=== PATIENT | male | born 1955 | race Caucasian/White ===

== ENCOUNTER 2023-02-27 08:59 | Inpatient (IN) | payer OTHER, SELFPAY ==
[2023-02-27] VITALS (58 sets, daily range): BP systolic 83–137; BP diastolic 50–113; PULSE 94–121; RESP 18–37; TEMP 36.1–36.6; O2SAT 87–94; BMI 24.4
--- NOTE | 2023-02-27 09:10 | XRR_ITS ---
PROCEDURE INFORMATION: Exam: XR Chest Exam date and time: 02/27/2023 9:52 AM Age: 67 years old Clinical indication: Cough and dyspnea; Additional info: Dyspnea/cough TECHNIQUE: Imaging protocol: Radiologic exam of the chest. Views: 1 view. Total images: 645 COMPARISON: No relevant prior studies available. FINDINGS: Lungs: Unremarkable. No consolidation. Pleural spaces: Unremarkable. No pleural effusion. No pneumothorax. Heart/Mediastinum: Unremarkable. No cardiomegaly. Bones/joints: Unremarkable. XR/XR chest 1V portable [id number] IMPRESSION: No acute findings.
--- NOTE | 2023-02-27 09:15 | CT_ITS ---
WS: [id number] CT HEAD TECHNIQUE: Noncontrast CT of the head obtained from the skullbase to the vertex. CLINICAL INFORMATION: AMS COMPARISON: None. DLP: 1173.[address] scans at [facility] use at least one of these dose optimization techniques: automated e xposure control; mA and/or kV adjustment per patient size (includes targeted exams where dose is matc hed to clinical indication); or iterative reconstruction. FINDINGS: No evidence of intracranial hemorrhage or mass effect. Ventricular system and basal cisterns are johnson nt. Moderate to advanced small vessel changes with mild parenchymal volume loss. No extra-axial fluid collections. No evidence of mass or mass effect. Intracranial vascular calcification. Chronic lacuna r infarct RIGHT cerebellum.. Paranasal sinuses and mastoid air cells are well aerated. .Normal visualized soft tissues. IMPRESSION: 1. No evidence of intracranial hemorrhage or mass effect. 2. Moderate to advanced small vessel changes. Mild parenchymal volume loss. 3. Intracranial vascular calcification. 4. Chronic lacunar infarct RIGHT cerebellum. 5. No acute intracranial findings.
--- NOTE | 2023-02-27 09:18 | ECG_ITS ---
[facility] Test Date: 2023-02-27 Pat Name: Rodrigo Shoemaker Department: Room: Gender: Male College Athlete: : 1955 Requested By: Edgardo Chappell Order Number: [id number] Irma MD: Osmin Sierra M.D. Measurements Intervals [place] Rate: 111 P: 55 LA: 169 QRS: 107 QRSD: 110 T: 16 QT: 339 QTc: 461 Interpretive Statements SINUS TACHYCARDIA POSSIBLE LEFT ATRIAL ENLARGEMENT [-0.1mV P-WAVE IN V1/V2] INCOMPLETE RIGHT BUNDLE BRANCH BLOCK [90+ ms QRS DURATION, TERMINAL R IN V1/V2, 40+ ms S IN I/aVL/V4/V5/V6] POSSIBLE RIGHT VENTRICULAR HYPERTROPHY [SOME/ALL OF: PROMINENT R IN V1, LATE TRANSITION, RAD, LETICIA, SSS] MARKED ST ELEVATION, CONSIDER INFERIOR INJURY [MARKED ST ELEVATION W/O NORMALLY INFLECTED T-WAVE IN II/aVF] ACUTE WA No previous ECG available for comparison Electronically Signed On 02-27-2023 12:29:23 CDT by Osimn Sierra M.D. [id number]
--- NOTE | 2023-02-27 09:30 | ED_ITS ---
HPI - Altered Mental Status General: Chief Complaint: Altered Mental Status Stated Complaint: ams Time Seen by Provider: 02/27/23 09:06 Source: EMS Mode of arrival: EMS Limitations: altered mental status History of Present Illness: Patient is a 67-year-old male with unknown past medical history who presents to the emergency department via EMS due to altered mental status onset 5 days. Per EMS, patient's last known well was Thursday as family reported that he attended lunch with them and was at baseline mentation. Family also notes that he had a minor fall resulting in a head laceration, but other than that there was nothing unusual to report about the patient or his behavior. It is unknown at this time who called EMS today, as patient arrives altered and does not answer any questions or respond to any commands. He exhibits an odor of urine and feces, and presents in soiled underwear that appears to have been unchanged for some time. Review of systems unobtainable at this time due to patient's mentation. EMS reports that patient's blood glucose was 78 and he was started on IV saline and put on oxygen. MD complaint: altered mental status Onset (ago): day(s) (5) Timing confirmed by: family member Severity: severe Consistency of symptoms: Unknown Context: unknown Treatments prior to arrival: glucose, IV fluid and oxygen Review of Systems General: Reports: ROS unobtainable due to mental status [facility] ED PFSH: Surgical History (Updated 02/27/23 @ 12:20 by Moose Coronado MD) History of hernia repair Social History (Updated 02/27/23 @ 12:20 by Moose Coronado MD) Smoking and tobacco/nicotine status: current every day tobacco/nicotine user Alcohol intake: current Physical Exam Const: EXAM LIMITATIONS: altered mental status (Patient does not answer questions or follow commands) GENERAL APPEARANCE: disheveled (Strong odor of urine and feces) and ill appearing ORIENTATION/CONSCIOUSNESS: Yes awake and Yes confused HENMT: COMMON NORMALS: normocephalic, atraumatic, hearing grossly normal bilaterally, external ears normal and Normal external nose present HEAD & SCALP: normocephalic and atraumatic; no laceration FACE & SINUS: normal facial exam NOSE: Normal external nose present EXTERNAL EAR: Yes external ears normal Eye: COMMON NORMALS: Equal, round and reactive pupils present, conjunctivae normal and no scleral icterus CONJUNCTIVA: Yes conjunctivae normal PUPIL: Yes Equal, round and reactive pupils present OTHER: Eyes track across midline Neck/C-Spine: COMMON NORMALS: no JVD Chest: COMMONS NORMALS: normal inspection of the chest Resp: EFFORT & INSPECTION: Yes audible wheezes OTHER: Audible gurgling breath sounds with inspiratory and expiratory wheezes throughout all lung toscano Cardio: COMMON NORMALS: no JVD, regular rhythm and No murmurs present (Cardio) RATE: tachycardic RHYTHM: regular rhythm GI: COMMON NORMALS: Soft to palpation and No hepatosplenomegaly present AUSCULTATION: Yes normoactive bowel sounds PALPATION: Yes Soft to palpation, No Tenderness to palpation present (GI), No Guarding due to palpation present (GI) and Yes No hepatosplenomegaly present Extremity: COMMON NORMALS: normal to inspection, capillary refill normal, no clubbing, cyanosis or edema, no calf tenderness and no pedal edema Skin: COMMON NORMALS: no rashes or lesions noted GENERAL SKIN EXAM: no rashes or lesions noted Course Vital Signs: Vital signs: Vital Signs Temperature 97 F L 02/27/23 13:30 Pulse Rate 111 H 02/27/23 13:30 Respiratory Rate 32 H 02/27/23 13:30 Blood Pressure 88/71 02/27/23 13:30 Pulse Oximetry 87 L 02/27/23 13:30 Oxygen Delivery Me thod Oxymask 02/27/23 12:00 Oxygen Flow Rate 3 02/27/23 10:00 MDM - Altered Mental Status Medical Decision Making Patient presented nonresponsive he would open his eyes to verbal stimuli but not provide any answers. Initial EKG showed ST elevation AK in the inferior d istribution this was repeated and was actually a little bit more clear than the first which had a lot of artifact. We called a STEMI alert and discussed with Dr. Gutierrez we had other concerns as well with his altered mental status his tachycardia and hypoxia. His last known well time was [address] the head was negative and CTA of the chest showed bilateral segmental and subsegmental pulmonary emboli heparin was ordered due to already been given heparin bolus Plavix and aspirin for his STEMI. Post output Dr. Sierra felt comfortable with proceeding to the Delimber Operator. Chest x-ray showed pneumonia. Laboratory test showed markedly elevated troponin with troponin at over 9000 he also has rhabdomyolysis acute kidney injury. He is hypoxic with acute respiratory failure exacerbation of COPD and pneumonia. He has a history of alcoholism suspect possible aspiration pneumonia he was given Zosyn. He does meet criteria for sepsis with elevated lactic acid cultures have been antibiotics ordered he was not given a fluid bolus because of his current condition with the fluid bolus would be harmful to him and needs to have his cardiac issues further evaluated prior to getting any fluid. He was given small doses of fluids and did have an improvement in his blood pressure. If he requires further support may need pressors in the Delimber Operator. Medical Records I reviewed the patient's medical records. Lab Data I reviewed the patient's lab results. 02/27/23 09:35 02/27/23 10:40 Radiology Impressions Chest X-Ray 02/27/23 09:10 IMPRESSION: No acute findings. Laboratory Results WBC 29.52 10^3/uL (3.29-11.43) H 02/27/23 09:35 RBC 5.27 10^6/uL (3.85-5.65) 02/27/23 09:35 Hgb 16.80 g/dL (11.27-16.99) 02/27/23 09:35 Hct 49.7 % (37-53) 02/27/23 09:35 MCV 94.3 fl (82-101) 02/27/23 09:35 MCH 31.9 pg (27-33) 02/27/23 09:35 MCHC 33.8 g/dL (30-55) 02/27/23 09:35 RDW 14.4 % (12.1-15.1) 02/27/23 09:35 Plt Count 179 10^3/cmm (157-399) 02/27/23 09:35 MPV 11.9 fL (7.4-10.4) H 02/27/23 09:35 Neut % (Auto) 91.8 % 02/27/23 09:35 Lymph % (Auto) 2.5 % 02/27/23 09:35 Osborne % (Auto) 3.8 % 02/27/23 09:35 Eos % (Auto) 0.3 % 02/27/23 09:35 Baso % (Auto) 0.1 % 02/27/23 09:35 Neut # (Auto) 27.10 10^3/uL (1.8-7.7) H 02/27/23 09:35 Lymph # (Auto) 0.7 10^3/uL (0.8-4.8) L 02/27/23 09:35 Osborne # (Auto) 1.1 10^3/uL (0.2-0.9) H 02/27/23 09:35 Eos # (Auto) 0.1 10^3/uL (0.0-0.8) 02/27/23 09:35 Baso # (Auto) 0.0 10^3/uL (0.0-0.1) 02/27/23 09:35 Nucleated RBC % (auto) 0 % 02/27/23 09:35 Nucleated RBCs # 0.0 /100WBC 02/27/23 09:35 PT 17.90 SECONDS (12.1-14.9) H 02/27/23 10:40 INR 1.43 (0.8-1.2) H 02/27/23 10:40 APTT 68.8 SECONDS (23.9-36.7) H 02/27/23 10:40 Specimen Type Arterial 02/27/23 10:07 Sample Site Radial, right 02/27/23 10:07 ABG pH 7.33 (7.35-7.45) L 02/27/23 10:07 ABG pCO2 28.3 mmHg (35-45) L 02/27/23 10:07 ABG pO2 55.8 mmHg (80.0-100.0) L 02/27/23 10:07 ABG HCO3 15.0 mmol/L (22-26) L 02/27/23 10:07 ABG O2 Saturation 86.7 02/27/23 10:07 ABG Base Excess -9.2 mmol/L (-2.0-2.0) L 02/27/23 10:07 Myles Test Pos 02/27/23 10:07 A-a O2 Gradient 7.7 mmHg (5-10) 02/27/23 10:07 Hematocrit 49.3 % (42-52) 02/27/23 10:07 Hgb O2 Saturation 85.4 % (95-100) L 02/27/23 10:07 Carboxyhemoglobin 1.1 %THgb (0.4-20.1) 02/27/23 10:07 Methemoglobin 0.4 % (0.4-1.5) 02/27/23 10:07 Total Hemoglobin 16.1 g/dL (14-18) 02/27/23 10:07 Sodium 125.0 mmol/L (131-143) L 02/27/23 10:07 Potassium 3.9 mmol/L (3.5-5.0) 02/27/23 10:07 Glucose 80.0 mg/dL (70-115) 02/27/23 10:07 Ionized Calcium 1.0 mmol/L (1.1-1.4) L 02/27/23 10:07 O2 Delivery Device Nc 02/27/23 10:07 O2 Liters/Min 4.0 % 02/27/23 10:07 Sewer Pipe Cleaner ID [place]ci 02/27/23 10:07 Sodium 123 mmol/L (136-145) L 02/27/23 10:40 Potassium 4.4 mmol/L (3.5-5.1) 02/27/23 10:40 Chloride 85 mmol/L (98-107) L 02/27/23 10:40 Carbon Dioxide 14 mmol/L (22-29) L 02/27/23 10:40 Anion Gap 28.4 (5-19) H 02/27/23 10:40 BUN 53 mg/dL (8-23) H 02/27/23 10:40 Creatinine 3.5 mg/dL (0.7-1.2) H 02/27/23 10:40 GFR Calculation 17.6 mL/min (90-130) L 02/27/23 10:40 Glucose 75 mg/dL (65-115) 02/27/23 10:40 Calculated Osmolality 269 mOsm/kg (285-295) L 02/27/23 10:40 Lactic Acid 4.1 mmol/L (0.5-2.2) H* 02/27/23 10:40 Calcium 8.0 mg/dL (8.5-10.5) L 02/27/23 10:40 Magnesium 2.0 mg/dL (1.7-2.3) 02/27/23 10:40 Total Bilirubin 0.7 mg/dL (0.15-1.2) 02/27/23 10:40 AST 166 U/L (0-40) H 02/27/23 10:40 ALT 94 U/L (0-41) H 02/27/23 10:40 Alkaline Phosphatase 78 U/L (40-130) 02/27/23 10:40 Ammonia 32 umol/L (16-60) 02/27/23 10:40 Creatine Kinase 3500 U/L (39-308) H* 02/27/23 10:40 Troponin T Baseline 9327 ng/L (0-15) H* 02/27/23 10:40 NT-Pro-B Natriuret Pep 16460 pg/mL (0-125) H 02/27/23 10:40 Total Protein 6.3 g/dL (6.6-8.7) L 02/27/23 10:40 Albumin 2.3 g/dL (3.5-5.2) L 02/27/23 10:40 Globulin 4.0 g/dL (1.3-4.6) 02/27/23 10:40 Lipase 21 U/L (13-60) 02/27/23 10:40 TSH 1.11 uIU/mL (0.27-4.20) 02/27/23 10:40 Urine Color Yellow (Yellow) 02/27/23 10:48 Urine Appearance Cloudy (CLEAR) A 02/27/23 10:48 Urine pH 5 (5-7) 02/27/23 10:48 Ur Specific [place] 1.020 (1.005-1.030) 02/27/23 10:48 Urine Protein 2+ (Negative) H 02/27/23 10:48 Urine Glucose (UA) Norm (Normal) 02/27/23 10:48 Urine Ketones 1+ (Negative) H 02/27/23 10:48 Urine Blood 3+ (Negative) H 02/27/23 10:48 Urine Nitrate Positive (Negative) H 02/27/23 10:48 Urine Bilirubin 1+ (Negative) H 02/27/23 10:48 Urine Urobilinogen 1 mg/dL (Negative) H 02/27/23 10:48 Ur Leukocyte Esterase 2+ (Negative) H 02/27/23 10:48 Urine RBC 0-4 /hpf (0-2) H 02/27/23 10:48 Urine WBC >100 /hpf (0-5) H 02/27/23 10:48 Ur Squamous Epith Cells 0-4 /hpf (0-5) H 02/27/23 10:48 Amorphous Sediment Not Reportable 02/27/23 10:48 Urine Bacteria 3+ /hpf (NONE) H 02/27/23 10:48 Fine Granular Casts 0-4 /lpf H 02/27/23 10:48 Coarse Granular Casts 0-4 /lpf H 02/27/23 10:48 Other Casts Waxy /lpf 02/27/23 10:48 Urine Mucus Trace /hpf 02/27/23 10:48 Ethyl Alcohol < 10 mg/dL (0-10) 02/27/23 10:40 Serum Ketones Negative (Negative) 02/27/23 10:40 Hepatitis A IgM Ab Non-reactive (Nonreactive) 02/27/23 10:40 Hep Bs Antigen Non-reactive (Nonreactive) 02/27/23 10:40 Hep B Core IgM Ab Non-reactive (Nonreactive) 02/27/23 10:40 Hepatitis C Antibody Non-reactive (Nonreactive) 02/27/23 10:40 All radiology interpretation(s) finalized by discharge Critical Care Time Critical Care Time: Critical Care Time: Yes Total Critical Care Time: 60 Attestation: The high probability of a clinically significant, sudden or life threatening deterioration of the patient's [Cardiovascular renal] system(s) required my full and direct attention, intervention and personal management. The critical care time is as shown. This time is in addition to time spent performing any reported procedures but includes the following: [x] Data and vital sign review and interpretation [x] Patient assessment, examination and intervention [x] Documentation [x] Medication orders and management Discharge Plan Discharge Patient Disposition: Admitted As Inpatient Admit Provider: Osmin Sierra Clinical Impression: Pulmonary emboli, Acute encephalopathy, ZEN (acute kidney injury), Sepsis, UTI (urinary tract infection), Acute hypoxic respiratory failure, STEMI (ST elevation myocardial infarction), Rhabdomyolysis, Aspiration pneumonitis, Alcoholism, COPD with acute exacerbation, Hyponatremia Condition: Stable Coding Level of Care Code ED Barrel Leveler for Keyana Khalil
--- NOTE | 2023-02-27 09:44 | XACV_ITS ---
Ht: 180 cm Wt: 79 kg BSA: 2.00 m2 Gender: Male : 1955 Exam Priority: Routine Procedure(s): Procedure Description: Diagnostic procedure Procedure Description: PCI procedure Procedure Description: Left Heart Catheterization Procedure Description: Left ventriculography Procedure Description: Drug Eluting Coronary Stent Procedure Description: Miscellaneous Procedure Description: ACT Procedure Description: Coronary Angiography Diagnostic Cath Status: Urgent Diagnostic Findings * INDICATION: 67 year old male with no known past medical history was brought by EMS with altered mental status. Patient gives no meaningful history. EKG shows sinus tachycardia with right bundle branch block and borderline ST elevations in inferior leads. He is not complaining of chest discomfort. Per ER history was reported to be last doing well 5 days ago. Patient had urgent CT head to rule out head bleed. Also had CTA chest and was found to have bilateral pulmonary emboli. However as we did not have a reliable history and EKG was suspicious with borderline inferior lead ST elevations in setting of right bundle branch block we decided to proceed with coronary angiogram urgently.. 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 Left to right collaterals are noted. * Left Main has no disease. * Left Anterior Descending has no disease. * Circumflex has no disease. * Coronary angiography shows right dominance. Interventional Findings * Procedure detail: We engaged RCA with JR4 guide catheter. IV heparin was administered to maintain anticoagulation. 0.014 run-through guidewire was used to cross the totally occluded vessel. We dilated the totally occluded vessel with 2.5 x 12 mm semicompliant balloon. However no significant flow was coming back. Winr-tq-jveow collaterals were already present. During the procedure initial troponin came back which was over 9000. This was not an acute occlusion. We decided to medically treat him. Guidewire and guide catheter were removed. Patient left the Metal Spinner in a stable condition. * Mid Right Coronary Artery to Distal Right Coronary Artery: 100% stenosis treated with a AB TREK 2.50X12 RX BALLOON. 100% residual stenosis, SELENA: 0 flow. Conclusions 1. 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 . 3. Unsuccessful attempt at revascularization with balloon angioplasty. Flow was not restored. Given left to right collaterals, initial troponin over 9000 no chest pain, this does not appear to be acute occlusion. Likely is subacute occlusion. Medical therapy decided. 4. Moderate left ventricular systolic dysfunction. Ejection fraction of 35%. 5. Mid Right Coronary Artery to Distal Right Coronary Artery was treated with a Balloon. Recommendations * Dual antiplatelet therapy with aspirin and plavix. * Continue anticoagulation with heparin. * Transfer to ICU. * Outpatient cardiology follow up in 4 weeks. Interventional RX Recommendation: PCI w/o planned CABG Diagnostic RX Recommendation: PCI w/o planned CABG Anticoagulation: Heparin Ventriculography Ejection Fraction: 35.0 % Pressures Phase:Rest AO : 116 / 77 ( 93 ) @ 12:30:00 PM 116 / 77 ( 93 ) @ 12:30:00 PM LV : 132 / 1 / 17 @ 12:29:00 PM 148 / 11 / 32 @ 12:29:00 PM 148 / 10 / 33 @ 12:30:00 PM Valves Phase:DefaultPhase AV : 32.0 @ 11:39:06 AM AV Mean Gradient: 22.0 @ 11:39:06 AM 22.0 @ 11:39:06 AM Clinical Evaluation EBL: 5mL-10mL Procedural Details Procedure Consent Obtained. Pre-Procedure Time Out. Identified patient by full name and date of as verbalized by the patient/guarantor. Does the consent match the physician's order: N/A Emergent. Accurate & Complete Informed Consent: Yes. Inpatient/Outpatient History & Physical on Chart: N/A Emergent. If H&P is completed, is and addenduem needed: N/A Emergent; If yes, is the addendum complete: N/A Emergent. Visualize and Verify Site with Patient/Guarantor: N/A. Relevant Radiology Images available: N/A Emergent. Pre-op teaching completed and patient verbalized understanding. The risks, benefits, and alternatives of sedation and/or procedure were discussed by physician. The patient agrees to continue. Procedure started. [facility] Clinical Fraility Score: 5: Mildly Frail. Metal Spinner Indications: New Onset Angina. Chest Pain Symptom Assessment: Typical Angina Symptoms. Cardiovascular Instability: No. Correct patient, site and procedure confirmed by cath team. PERRLA. Strong, equal hand lead setter bilaterally. Lungs clear x 5 lobes. IV Site on Arrival: 20 gauge in the right upper arm. IV Fluids: 0.9% NaCl at KVO. 0 mL infused prior to recyclable materials sorter. Oxygen started at 10liters/min via venti mask. right groin was prepped with chloroprep then draped in the usual sterile fashion. right radial was prepped with chloroprep then draped in the usual sterile fashion. Physician arrived. Baseline sample Acquired. HR: 109 BPM. Physician scrubbed in. Immediate Pre-Procedure Time Out. Correct Patient: Yes; Correct Procedure: Yes; Correct Site: Yes; Correct Patient Position: Yes; Correct Supplies: Yes; Dried Flammable Prep: Yes; Blood Products Available: N/A;. Lidocaine 1% infiltrated to the right radial. Arterial access obtained. A 5 [facility] lucian TIG catheter in over wire. Catheter redirected to the RCA. Catheter removed over the exchange wire. Inventory is CRD 6FR JR [address] lucian JR 4 guide catheter was inserted over the wire. Multiple views taken of left coronary artery. Multiple views taken of right coronary artery. Runthrough guidewire was advanced through the guide catheter to lesion in the mid RCA. Inflation number : 1 A AB TREK 2.50X12 RX BALLOON was prepped and advanced across the Mid RCA , then inflated to 8 GIRISH for 0:09 seconds. Inflation number: 2 The AB TREK 2.50X12 RX BALLOON was reinflated across the Mid RCA, to 8 GIRISH for 0:09 seconds. Inflation number: 3 The AB TREK 2.50X12 RX BALLOON was reinflated across the Mid RCA, to 4 GIRISH for 0:08 seconds. Inflation number: 4 The AB TREK 2.50X12 RX BALLOON was reinflated across the Mid RCA, to 8 GIRISH for 0:17 seconds. Inflation number: 5 The AB TREK 2.50X12 RX BALLOON was reinflated across the Mid RCA, to 8 GIRISH for 0:17 seconds. Results checked. Balloon out. A second Runthrough guidewire was advanced through the guide catheter to lesion in the mid RCA. One Runthrough wire removed. Inflation number: 6 The AB TREK 2.50X12 RX BALLOON was reinflated across the Mid RCA, to 2 GIRISH for 0:07 seconds. Inflation number: 7 The AB TREK 2.50X12 RX BALLOON was reinflated across the Mid RCA, to 4 GIRISH for 0:09 seconds. Inflation number: 8 The AB TREK 2.50X12 RX BALLOON was reinflated across the Mid RCA, to 8 GIRISH for 0:06 seconds. Inflation number: 9 The AB TREK 2.50X12 RX BALLOON was reinflated across the Mid RCA, to 10 GIRISH for 0:05 seconds. Critical troponin reported 9327 and lactid acid 4.1. Balloon out. Results checked. Wire out. Guide catheter out. A [address] [facility] lucian Angled Pig catheter in over wire. EDP Sample taken: LV Off; HR: 0 BPM; SpO2: 90%. EDP Sample taken: LV 132/1,17; HR: 64 BPM; SpO2: 90%. LV gram performed in HERRON @ 10 mL/second for a total of 30 mL. EDP Sample taken: LV 148/11,32; HR: 119 BPM; SpO2: 90%. Pullback taken: LV 148/10,33; AO 116/77(93); Mean: 22mmHg, Peak to Peak: 32mmHg, SEP: 16sec/min; HR: 119 BPM; SpO2: 90%. Catheter out. ACT drawn. Results 266 seconds. Therapeutic limits - pre-heparin administration 90-150 seconds and monitoring heparin during a vascular procedure >250 seconds. Physician scrubbed out. A TR Band was successful obtaining hemostatsis at the Right Radial artery insertion site. TR band placed. Hemostasis obtained. Post Procedure: Pulses reassessed and unchanged. PERRLA. Strong, equal hand lead setter bilaterally. No VTE prophylaxis required. Medication's Wasted: Nitro = 49.8 mg. Medication's Wasted: Other = fentanyl 75 mcg. Medication's Wasted: Other = versed 1 mg. Total IV fluids: 30 mL. Contrast type used: Omnipaque 300 mgI/mL, 500 mL bottle. Post-op diagnosis: total occlusion of RCA with collaterals to left. Complications: none. Estimated blood loss: 5mL-10mL. Responsiveness - Normal response to verbal stimuli; alert and oriented, PERRLA. Airway - Unaffected, no intervention required; spontaneous ventilation. Circulation: W/N/L, pulses unchanged. Nausea/Vomiting: N/A. Procedure completed. Patient transferred by stretcher to ICU. Vital chart was stopped. Access Site Site: Right Radial artery Sheath Size: 6 Fr Hemostasis Method: TR Band Hemostasis Success: Successful Procedure Medications Start: 10:56 AM Stop: 10:56 AM Medication: Versed Amount: 1 mg Route: I.V. Start: 11:00 AM Stop: 11:00 AM Medication: Fentanyl Amount: 25 mcg Route: I.V. Start: 11:05 AM Stop: 11:05 AM Medication: Nitrogylcerin Amount: 200 mcg Route: I.A. Start: 11:07 AM Stop: 11:07 AM Medication: Heparin Amount: 4000 units Route: I.V. Start: 11:24 AM Stop: 11:24 AM Medication: Levophed (norepinephrine) Amount: 4 mcg/min Route: I.V. yobani Ulloa, the attending physician, have reviewed and verified all procedure medications. Yes, all medications given per verbal order Report Signatures Finalized by Osmin Sierra MD on 03/01/2023 12:21 PM
[2023-02-27 09:45] LABS: Basophils % 0.1 %; Eosinophils # 0.1 10^3/uL (0.0-0.8); Eosinophils % 0.3 %; Hematocrit 49.7 % (37-53); Lymphocytes # 0.7 10^3/uL (0.8-4.8); Lymphocytes % 2.5 %; Mean Corpuscular HGB Conc 33.8 g/dL (30-55); Mean Corpuscular Hemoglobin 31.9 pg (27-33); Mean Corpuscular Volume 94.3 fl (82-101); Mean Platelet Volume 11.9 fL (7.4-10.4); Monocytes # 1.1 10^3/uL (0.2-0.9); Monocytes % 3.8 %; Neutrophils % 91.8 %; Nucleated Red Blood Cells % 0 %; Platelet Count 179 10^3/cmm (157-399); Red Blood Count 5.27 10^6/uL (3.85-5.65); Red Cell Distribution Width 14.4 % (12.1-15.1); White Blood Count 29.52 10^3/uL (3.29-11.43)
--- NOTE | 2023-02-27 09:49 | CT_ITS ---
WS: [id number] CTA OF THE CHEST WITH PULMONARY EMBOLISM PROTOCOL TECHNIQUE: High-resolution contrast enhanced CTA of the chest with coronal and sagittal reformatted i mages with pulmonary embolism protocol. MIP images are also reviewed. CLINICAL INFORMATION: dyspnea COMPARISON: None. DLP: 456.[address] scans at [facility] use at least one of these dose optimization techniques: automated e xposure control; mA and/or kV adjustment per patient size (includes targeted exams where dose is matc hed to clinical indication); or iterative reconstruction. FINDINGS: Proximal pulmonary arteries are normal. Numerous filling defects in the bilateral segmental and subse gmental pulmonary arteries compatible with pulmonary embolus. No evidence of RIGHT heart strain. Moderate chronic emphysematous changes. Tiny RIGHT greater than LEFT pleural effusions. Bibasilar ate lectasis. Normal caliber thoracic aorta. Aortic calcification. Coronary calcification. No mediastinal or hilar lymphadenopathy. Trace pericardial fluid. Adrenal glands are normal. IMPRESSION: 1. Bilateral acute pulmonary embolus in the segmental and subsegmental arteries bilaterally. Main pu lmonary arteries are patent. 2. No significant RIGHT heart strain. 3. Trace pleural fluid RIGHT greater than LEFT with bibasal atelectasis. Notified Edgardo Chang DO at 02/27/2023 10:40 AM.
[2023-02-27 10:08] LABS: Slide Review Slide Review Perform
[2023-02-27] MEDS: aspirin 300 mg Supp PR (10:15)
[2023-02-27] MEDS: heparin 5,000 unit/mL INJ 1 mL 4000 UNIT IVP (10:17)
[2023-02-27 10:18] LABS: ABG PCO2 28.3 mmHg (35-45); ABG PH Result 7.33 (7.35-7.45); Alveolar-Arterial Oxygen Gradi 7.7 mmHg (5-10); Arterial Blood Gas Hematocrit 49.3 % (42-52); Base Excess ABG -9.2 mmol/L (-2.0-2.0); Blood Gas Allen Test Pos; Blood Gas Operator Identificat WALCI; Blood Gas Sample Site Radial, right; Blood Gas Sample Type Arterial; Carboxyhemoglobin 1.1 %THgb (0.4-20.1); HGB O2 Sat 85.4 % (95-100); Methemoglobin 0.4 % (0.4-1.5); Oxygen Device NC; Oxygen Saturation ABG 86.7; PO2 ABG 55.8 mmHg (80.0-100.0); Potassium Level - ABG 3.9 mmol/L (3.5-5.0); Total Hemoglobin 16.1 g/dL (14-18)
[2023-02-27] MEDS: iohexol 350 mg/mL 500 mL Btl (per mL) IV (10:26)
--- NOTE | 2023-02-27 10:33 | ECG_ITS ---
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 Measurements Intervals [place] Rate: 122 P: 48 AL: 144 QRS: 104 QRSD: 114 T: -43 QT: 334 QTc: 477 Interpretive Statements SINUS TACHYCARDIA ACUTE AR Compared to ECG 02/27/2023 09:18:21 Incomplete right bundle-branch block no longer present ST (T wave) deviation no longer present Myocardial infarct finding no longer present Electronically Signed On 02-27-2023 12:31:41 CDT by Osmin Sierra M.D. [id number]
--- NOTE | 2023-02-27 10:40 | PM.CONSULT ---
Providers/Reason For Consult Consulting Physician/Specialty*: Osmin Sierra MD/ Cardiology Reason for Consult*: STEMI Requesting Physician: Dr Chang Attending Physician: Dr Coronado History of Present Illness History of Present Illness Rodrigo Shoemaker is a 67 year old male with no known past medical history was brought by EMS with altered mental status. Patient gives no meaningful history. EKG shows sinus tachycardia with rightward branch block and possible ST elevations in inferior leads. He is not complaining of chest discomfort. Per ER history was reported to be last doing well 5 days ago. Review of Systems General: Reports: ROS unobtainable due to mental status Medications/Allergies Home Medications Medication Instructions Recorded Confirmed Last Taken Type No Known Home Medications 02/27/23 02/27/23 Unknown History Allergies Allergy/AdvReac Type Severity Reaction Status Date / Time No Known Allergies Allergy Unverified 02/27/23 09:41 Current Medications Generic Name Dose Route Start Last Admin Trade Name Freq PRN Reason Stop Dose Admin Iohexol 0 ml 02/27/23 10:25 02/27/23 10:26 Iohexol 350 Mg/Ml 500 Ml Btl (Per Ml) IV 02/27/23 10:26 100 ml ONCE ONE Administration PFSH Acute PFSH: Surgical History (Updated 02/27/23 @ 12:20 by Moose Coronado MD) History of hernia repair Social History (Updated 02/27/23 @ 12:20 by Moose Coronado MD) Smoking and tobacco/nicotine status: current every day tobacco/nicotine user Alcohol intake: current Vitals/I&O/Wt Last Vital Signs Temp 97.7 F 02/27/23 10:03 Pulse 113 H 02/27/23 10:00 Resp 18 02/27/23 10:00 Pulse Ox 89 L 02/27/23 10:00 O2 Del Method Nasal Cannula 02/27/23 10:00 O2 Flow Rate 3 02/27/23 10:00 Weight last 48 hrs Weight 175 lb Physical Exam Narrative: GENERAL: Patient is confused, does not respond to questions NECK: No jugular vein distension. [] HEENT: No cyanosis. No icterus. No pallor. [] HEART: Tachycardia LUNGS: Diminished air entry CENTRAL NERVOUS SYSTEM: Confused, does not follow commands EXTREMITIES: Lower extremities with 1+ edema bilaterally. Data 02/28/23 03:56 02/28/23 03:56 A&P Assessment and plan (1) Acute encephalopathy: (2) Pulmonary emboli: (3) ST elevation: Plan Patient has presented with altered mental status. Not complaining of chest pain however not responding to questions appropriately. He had high concern for pulmonary embolism given right bundle branch block along with tachycardia and hypoxia. CTA was performed that showed bilateral segmental and subsegmental pulmonary emboli. Given his ST changes showing borderline ST elevation in inferior cotter, we will proceed with emergent coronary angiogram. Labs are pending at this time. Anticoagulation with heparin Aspirin given. Consult Attestations Medical Necessity Statement: Care expected to cross 2 midnights. Coding Level of Care Code Acute Code for [facility] Diagnoses Acute encephalopathy G93.[address] elevation R94.31
--- NOTE | 2023-02-27 10:52 | PC.NURSE ---
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
[2023-02-27 11:10] LABS: INR 1.43 (0.8-1.2)
[2023-02-27 11:11] LABS: Partial Thromboplastin Time 68.8 SECONDS (23.9-36.7)
[2023-02-27 11:15] LABS: Ketone (Acetest) Serum Negative (Negative)
[2023-02-27 11:17] LABS: Ammonia 32 umol/L (16-60)
[2023-02-27 11:24] LABS: Troponin(5th) Baseline 9327 ng/L (0-15)
[2023-02-27 11:25] LABS: Lactic Sepsis W/Reflex 4.1 mmol/L (0.5-2.2)
[2023-02-27 11:27] LABS: Alanine Aminotransferase 94 U/L (0-41); Albumin Level 2.3 g/dL (3.5-5.2); Alkaline Phosphatase 78 U/L (40-130); Blood Urea Nitrogen 53 mg/dL (8-23); Carbon Dioxide 14 mmol/L (22-29); Chloride 85 mmol/L (98-107); Glomerular Filtration Rate 17.6 mL/min (90-130); Glucose 75 mg/dL (65-115); Lipase 21 U/L (13-60); Osmolality Calculated 269 mOsm/kg (285-295); Sodium 123 mmol/L (136-145); Total Bilirubin 0.7 mg/dL (0.15-1.2); Total Protein 6.3 g/dL (6.6-8.7)
[2023-02-27 11:30] LABS: Alcohol Level < 10 mg/dL (0-10); Creatinine Clr Calc Pharmacy 22.2857
[2023-02-27 11:31] LABS: Anion Gap 28.4 (5-19); Aspartate Amino Transferase 166 U/L (0-40); Potassium 4.4 mmol/L (3.5-5.1)
[2023-02-27 11:32] LABS: Add Urine Microscopic? YES; Bilirubin Urine 1+ (Negative); Blood Urine 3+ (Negative); Glucose Urine UA Norm (Normal); Ketones Urine 1+ (Negative); Leukocyte Esterase Urine 2+ (Negative); Nitrate Urine Positive (Negative); Protein Urine 2+ (Negative); RBC Urine 0-4 /hpf (0-2); Urine Appearance Cloudy (CLEAR); Urine Color Yellow (Yellow); Urobilinogen Urine 1 mg/dL (Negative); WBC Urine >100 /hpf (0-5); pH Urine 5 (5-7)
[2023-02-27 11:33] LABS: NT Pro B Type Natriuretic Pept 25047 pg/mL (0-125)
[2023-02-27 11:33] LABS: Add Urine Culture? Yes; Bacteria Urine 3+ /hpf; Coarse Granular Casts Urine 0-4 /lpf; Fine Granular Casts Urine 0-4 /lpf; Mucus Urine TRACE /hpf; Other Casts Urine WAXY /lpf; Squamous Epithelial Cell Urine 0-4 /hpf (0-5)
[2023-02-27 11:48] LABS: Creatine Phosphokinase 3500 U/L (39-308)
--- NOTE | 2023-02-27 11:56 | USCV_ITS ---
Rodrigo Shoemaker Age: 67 Gender: M : 1955 Exam Date: 02/27/2023 18:20 Ordering Phys: Moose Coronado MD Technologist: Flavio Monk [place] [facility] [place]ication: [place] BP: 84 / 68 HR: 95 Rhythm: Sinus Technical Quality: Adequate MEASUREMENTS (Male / Female) Normal Values 2D ECHO LVOT Diameter 2.1 cm LV Ejection Fraction MOD 2C 65.6 % LV Ejection Fraction 2C AL 65.9 % LA Diameter 3.1 cm LA Width 3.8 cm LA Height 2.1 cm RA Width 3.7 cm RA Height 4.2 cm Aorta at Sinotubular Diameter 2.3 cm IVC Diameter 1.7 cm M-MODE Aortic Annulus Diameter 3.3 cm LA Ao Ratio MM 0.9 MV E Point Septal Separation 0.6 cm DOPPLER AV Peak Velocity 140.0 cm/s LVOT Peak Velocity 78.0 cm/s AV Area Cont Eq vti 1.7 cm squared AV Area Cont Eq pk 1.9 cm squared MV Peak Velocity 93.0 cm/s MV Area PHT 4.6 cm squared Mitral E to A Ratio 0.6 MV E' Velocity 23.0 cm/s Mitral E to MV E' Ratio 4.8 Mitral E to LV E' Lateral Ratio 4.9 Mitral E to LV E' Septal Ratio 4.8 TR Peak Velocity 169.6 cm/s TR Peak Gradient 11.5 mmHg TR Mean Velocity 120.7 cm/s TR Mean Gradient 6.5 mmHg TR Velocity Time Integral 28.2 cm Right Atrial Pressure 3.0 mmHg Pulmonary Artery Systolic Pressu 14.5 mmHg PV Peak Velocity 101.3 cm/s RV Acceleration Time 0.1 s RV Ejection Time 0.2 s RV AcT/ET 0.4 FINDINGS Left Ventricle Normal left ventricular cavity size. Mildly decreased left ventricular systolic function. Left ventricular ejection fraction is estimated at 50 %. There is moderate hypokinesis of basal to apical inferior and basal to mid inferoseptal cotter. Grade I diastolic dysfunction (abnormal relaxation filling pattern), normal to mildly elevated filling pressures. Abnormal septal motion consistent with conduction abnormality. Right Ventricle Normal right ventricular size and systolic function. Right Atrium Normal right atrial size. Left Atrium Left atrium not well visualized. Normal left atrial size. Mitral Valve Mildly thickened mitral valve. No mitral valve stenosis. No mitral valve regurgitation. Aortic Valve Thickened and calcified aortic valve. No significant aortic valve stenosis. No aortic valve regurgitation. Tricuspid Valve Structurally normal tricuspid valve. Trace tricuspid valve regurgitation. Pulmonic Valve Pulmonic valve not well visualized. No pulmonary valve stenosis. No pulmonary valve regurgitation. Pericardium No pericardial effusion. Aorta Normal size aortic root and proximal ascending aorta. IVC Normal IVC dimension with >50% respiratory change of the inferior vena cava. CONCLUSIONS 1. Normal left ventricular cavity size and mildly decreased left ventricular systolic function. Left ventricular ejection fraction is estimated at 50 %. There is moderate hypokinesis of basal to apical inferior and basal to mid inferoseptal cotter. Grade I diastolic dysfunction (abnormal relaxation filling pattern), normal to mildly elevated filling pressures. 2. No prior similar studies to compare Frances Francois MD (Electronically Signed) Final Date: 28 February 2023 10:32 Amended: 28 February 2023 23:00 C
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
[2023-02-27] MEDS: methylPREDNISolone sod succ 60 MG in water for injection-sterile 0.96 ML 11.52 MG IVP (12:26)
[2023-02-27] MEDS: piperacillin-tazobactam 3.375 GM in sodium chloride 0.9% (plus) 50 ML IV ×2 (12:27→20:15)
[2023-02-27 12:39] LABS: Reflex Lactate Order REFLEX LACTIC ORDERD
[2023-02-27] MEDS: ipratropium-albuterol 3 mL Neb INHALATION ×4 (12:51→23:20)
[2023-02-27 13:13] LABS: Thyroid Stimulating Hormone 1.11 uIU/mL (0.27-4.20)
[2023-02-27 13:17] LABS: Hepatitis A Antibody IgM Non-Reactive (Nonreactive); Hepatitis B Core IgM Non-Reactive (Nonreactive); Hepatitis B Surface Antigen Non-Reactive (Nonreactive); Hepatitis C Virus Antibody Non-Reactive (Nonreactive)
--- NOTE | 2023-02-27 13:35 | PC.NURSE ---
pt unable to answer social question or suicide risk , flu and immunizations at this time only answer one word response
[2023-02-27 14:00] LABS: Amphetamines Screen Urine Negative (Negative); Barbiturates Screen Urine Negative (Negative); Benzodiazepines Screen Urine Negative (Negative); Cocaine Screen Urine Negative (Negative); Opiate Screen Urine Negative (Negative); PCP Screen Urine Negative (Negative); THC Screen Urine Negative (Negative)
[2023-02-27 14:03] LABS: Partial Thromboplastin Time 39.4 SECONDS (23.9-36.7)
[2023-02-27 14:07] LABS: Troponin 5 2HR 8734 ng/L (0-15)
[2023-02-27 14:18] LABS: Potassium, Radom Urine 40 mmol/L; Urine Random Chloride 36 mmol/L; Urine Random Sodium 37 mmol/L
[2023-02-27] MEDS: heparin drip 25,000 UNIT/500 ML PREMIX 22.23 UNIT IV (14:19)
--- NOTE | 2023-02-27 14:48 | PC.NURSE ---
james paperwork obtained and lilyoa here talking with doctor .. he did say one word response.. talked with Lilly who related part of history we couldnt obtain... does not take any iminizations and has never been suicidal.. collier not been at risk electric turn off or running out of food several friends check on him regular basis
--- NOTE | 2023-02-27 14:55 | PC.NURSE ---
Lilly related also pt drinks 12 to 18 beers a day and smoked a least 2 pks ciggaretts per day
[2023-02-27 15:40] LABS: Adenovirus Not Detected (NOT DETECT); Chlamydia Pneumoniae Not Detected (NOT DETECT); Coronavirus 229E,HKU1,NL63,OC4 Not Detected (NOT DETECT); Human Metapneumovirus Not Detected (NOT DETECT); Human Rhinovirus/Enterovirus Not Detected (NOT DETECT); Influenza A Not Detected (NOT DETECT); Influenza A H1 Not Detected (NOT DETECT); Influenza A H1-2009 Not Detected (NOT DETECT); Influenza A H3 Not Detected (NOT DETECT); Influenza B Not Detected (NOT DETECT); Mycoplasma Pneumoniae Not Detected (NOT DETECT); Parainfluenza Virus Type 1 Not Detected (NOT DETECT); Parainfluenza Virus Type 2 Not Detected (NOT DETECT); Parainfluenza Virus Type 3 Not Detected (NOT DETECT); Parainfluenza Virus Type 4 Not Detected (NOT DETECT); Respiratory Syncytial Virus A Not Detected (NOT DETECT); Respiratory Syncytial Virus B Not Detected (NOT DETECT); SARS-COV-2 Not Detected (NOT DETECT)
[2023-02-27 15:53] LABS: Blood Urea Nitrogen 60 mg/dL (8-23); Calcium 7.9 mg/dL (8.5-10.5); Carbon Dioxide 13 mmol/L (22-29); Chloride 87 mmol/L (98-107); Glucose 73 mg/dL (65-115); Lactic Acid level (Lactate) 1.3 mmol/L (0.5-2.2); Osmolality Calculated 271 mOsm/kg (285-295); Sodium 123 mmol/L (136-145)
[2023-02-27 15:55] LABS: Anion Gap 26.8 (5-19); Potassium 3.8 mmol/L (3.5-5.1)
--- NOTE | 2023-02-27 15:58 | PC.NURSE ---
continues to only respond one word .. not able to make decisions at this time
--- NOTE | 2023-02-27 15:59 | ECG_ITS ---
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 Measurements Intervals [place] Rate: 103 P: 49 CO: 168 QRS: 251 QRSD: 144 T: -30 QT: 364 QTc: 477 Interpretive Statements SINUS TACHYCARDIA POSSIBLE LEFT ATRIAL ENLARGEMENT [-0.1mV P-WAVE IN V1/V2] RIGHT AXIS DEVIATION [QRS AXIS > 100] RIGHT BUNDLE BRANCH BLOCK [120+ ms QRS DURATION, UPRIGHT V1, 40+ ms S IN I/aVL/V4/V5/V6] Compared to ECG 02/27/2023 10:33:26 Right-axis deviation now present Right bundle-branch block now present Electronically Signed On 02-27-2023 19:39:48 CDT by Osmin Sierra M.D. [id number]
[2023-02-27] MEDS: lanolin oint 7 gm 1 APPLIC TOPICAL (17:17)
[2023-02-27 17:44] LABS: Troponin 5 6HR 8014 ng/L (0-15)
[2023-02-27] MEDS: budesonide 0.5 mg/2 mL Neb INHALATION (20:02)
[2023-02-27 20:37] LABS: Partial Thromboplastin Time 43.6 SECONDS (23.9-36.7)
--- NOTE | 2023-02-27 23:19 | PC.NURSE ---
Patient has communicated well with this nurse, asks questions regarding care and history of events. Spoke at length with Yeny who is concerned that patient would not want medical treatment and would prefer more natural treatments. This nurse reiterated the treatments that were established already and previously discussed with the hospitalist. Yeny acknowledges the patient's residence would not be acceptable. This nurse discussed the limitations of the AND and that we would not escalate treatment. Concerns were voiced over medicine that could be used for withdrawal symptoms. Yeny asked that we notify her prior to administration of any such medications. I instructed her to speak with hospitalist in the morning if they wished to begin alternate therapies for the patient.
[2023-02-28] VITALS (50 sets, daily range): BP systolic 86–124; BP diastolic 64–88; PULSE 85–113; RESP 22–34; TEMP 36.6–36.7; O2SAT 88–96
[2023-02-28] MEDS: methylPREDNISolone sod succ 60 MG in water for injection-sterile 0.96 ML 11.52 MG IVP (00:16)
[2023-02-28] MEDS: sodium chloride 0.9% 1,000 ML 75 ML IV (01:44)
[2023-02-28] MEDS: ipratropium-albuterol 3 mL Neb INHALATION ×5 (03:16→20:22)
[2023-02-28 04:04] LABS: Basophils # 0.1 10^3/uL (0.0-0.1); Basophils % 0.5 %; Eosinophils # 0.2 10^3/uL (0.0-0.8); Eosinophils % 1.3 %; Hematocrit 42.3 % (37-53); Lymphocytes # 0.5 10^3/uL (0.8-4.8); Lymphocytes % 2.6 %; Mean Corpuscular HGB Conc 35.7 g/dL (30-55); Mean Corpuscular Hemoglobin 31.7 pg (27-33); Mean Corpuscular Volume 88.7 fl (82-101); Mean Platelet Volume 11.1 fL (7.4-10.4); Monocytes # 0.5 10^3/uL (0.2-0.9); Monocytes % 2.8 %; Neutrophils # 16.41 10^3/uL (1.8-7.7); Neutrophils % 92.3 %; Nucleated Red Blood Cells % 0 %; Platelet Count 181 10^3/cmm (157-399); Red Blood Count 4.77 10^6/uL (3.85-5.65); Red Cell Distribution Width 13.8 % (12.1-15.1); White Blood Count 17.78 10^3/uL (3.29-11.43)
[2023-02-28] MEDS: piperacillin-tazobactam 3.375 GM in sodium chloride 0.9% (plus) 50 ML IV ×3 (04:15→19:36)
[2023-02-28 04:18] LABS: Partial Thromboplastin Time 44.1 SECONDS (23.9-36.7)
[2023-02-28 04:27] LABS: Alanine Aminotransferase 76 U/L (0-41); Albumin Level 2.7 g/dL (3.5-5.2); Alkaline Phosphatase 66 U/L (40-130); Anion Gap 26.5 (5-19); Aspartate Amino Transferase 110 U/L (0-40); Blood Urea Nitrogen 66 mg/dL (8-23); Calcium 7.9 mg/dL (8.5-10.5); Carbon Dioxide 14 mmol/L (22-29); Chloride 93 mmol/L (98-107); Globulin 3.8 g/dL (1.3-4.6); Glucose 99 mg/dL (65-115); Osmolality Calculated 289 mOsm/kg (285-295); Potassium 3.5 mmol/L (3.5-5.1); Sodium 130 mmol/L (136-145); Total Bilirubin 0.7 mg/dL (0.15-1.2); Total Protein 6.5 g/dL (6.6-8.7)
[2023-02-28 04:28] LABS: Creatine Phosphokinase 1774 U/L (39-308)
[2023-02-28] MEDS: budesonide 0.5 mg/2 mL Neb INHALATION ×2 (07:43→20:22)
--- NOTE | 2023-02-28 08:38 | PM.PN ---
Subjective Subjective: Patient had coronary angiogram yesterday. RCA was totally occluded however it was not acute as had already developed collaterals and troponin level was extremely high over 9000 with a downtrend. Possible ST elevation UT happened in the last week. We briefly attempted revascularization however after balloon angioplasty no flow was seen. Stent was not placed then. Patient is responding to questions appropriately today. Denies chest pain. Vitals/I&O/Wt Last Vital Signs Temp 97.8 F 02/27/23 19:15 Pulse 99 02/28/23 08:00 Resp 26 H 02/28/23 08:00 BP 120/82 02/28/23 08:00 Pulse Ox 92 02/28/23 08:00 O2 Del Method High Flow Nasal Cannula 02/28/23 07:43 O2 Flow Rate 10 02/28/23 07:43 02/27/23 02/28/23 02/28/23 22:59 06:59 14:59 Intake Total 247.83 / 298.79 239.71 / 538.50 Output Total 1000 / 1000 1000 / 2000 Balance -752.17 / -701.21 -760.29 / -1461.50 Weight last 48 hrs Weight 175 lb Weight 175 lb Physical Exam Narrative: GENERAL: Patient is alert NECK: No jugular vein distension. [] HEENT: No cyanosis. No icterus. No pallor. [] HEART: Tachycardia LUNGS: Diminished air entry CENTRAL NERVOUS SYSTEM: Alert EXTREMITIES: Lower extremities with 1+ edema bilaterally. Urinary Catheter Management: Vazquez: Cath Placed During This Visit: yes Reason for Continuing Indwelling Catheter: Accurate Measurement of Urinary Output in Critically Ill Patients Urinary Catheter Date of Insertion: 02/27/23 Urinary Catheter Time of Insertion: 10:51 Data 02/28/23 03:56 02/28/23 03:56 Micro: Microbiology 02/27/23 15:08 Blood Culture - Preliminary Blood SPECIMEN COLLECTED 02/27/23 13:24 Blood Culture - Preliminary Blood SPECIMEN COLLECTED A&P Assessment and plan (1) Acute encephalopathy: (2) Pulmonary emboli: (3) ST elevation: Plan Patient had late presentation of ST elevation UT with collaterals. Downtrending troponin. He is chest pain-free. Medical management as balloon angioplasty did not restore any blood flow. On LV gram EF was 30 to 35% with akinetic inferior wall. Echocardiogram is pending. Anticoagulation with heparin for now to treat PE. Dual antiplatelet therapy with aspirin and plavix Creatinine is downtrending. Thank you for involving us with care of this patient. We will continue to follow. Please call with questions Attestations Medical Necessity Statement*: Care expected to cross 2 midnights. Coding Level of Care Code Acute Code for [facility] Diagnoses Acute encephalopathy G93.[address] elevation R94.31
[2023-02-28] MEDS: multivitamin therapeutic Tablet 1 TAB PO (09:15)
[2023-02-28] MEDS: aspirin 81 mg EC Tablet PO (09:15)
[2023-02-28] MEDS: pantoprazole 40 mg SDV IVP (09:16)
[2023-02-28] MEDS: clopidogrel 75 mg Tablet PO (09:16)
[2023-02-28] MEDS: thiamine 100 mg Tablet PO (09:16)
[2023-02-28] MEDS: folic acid 1 mg Tablet PO (09:16)
[2023-02-28] MEDS: heparin drip 25,000 UNIT/500 ML PREMIX 28 UNIT IV (10:36)
[2023-02-28 11:11] LABS: Partial Thromboplastin Time 43.1 SECONDS (23.9-36.7)
[2023-02-28] MEDS: methylPREDNISolone sod succ 60 MG in water for injection-sterile 0.96 ML 11 MG IVP (11:31)
--- NOTE | 2023-02-28 12:16 | USR_ITS ---
PROCEDURE INFORMATION: Exam: US Duplex Lower Extremity Veins, Bilateral Exam date and time: 02/28/2023 12:48 PM Age: 67 years old Clinical indication: Edema, localized; Lower extremity, bilateral; Additional info: R/O dvt TECHNIQUE: Imaging protocol: Real-time duplex ultrasound of the bilateral extremities with 2-D ashford scale, color Doppler flow and spectral waveform analysis including responses to compression and other maneuvers (when performed) with image documentation. Complete exam focused on the lower extremity veins. COMPARISON: No relevant prior studies available. FINDINGS: Right deep veins: Unremarkable. The common femoral, femoral, proximal profunda femoral and popliteal veins are patent without thrombus. Normal Doppler waveforms. Normal compressibility and/or augmentation response. Left deep veins: Unremarkable. The common femoral, femoral, proximal profunda femoral and popliteal veins are patent without thrombus. Normal Doppler waveforms. Normal compressibility and/or augmentation response. Superficial veins: Bilateral saphenofemoral junctions are patent without thrombus. Soft tissues: Unremarkable. US/CV venous duplex [facility] [id number] IMPRESSION: No evidence of deep vein thrombosis.
[2023-02-28 12:45] LABS: ABG PCO2 25.5 mmHg (35-45); ABG PH Result 7.44 (7.35-7.45); Alveolar-Arterial Oxygen Gradi 7.8 mmHg (5-10); Arterial Blood Gas Hematocrit 44.6 % (42-52); Blood Gas Allen Test Pos; Blood Gas Sample Type Arterial; Carboxyhemoglobin 1.1 %THgb (0.4-20.1); HCO3 ABG 17.4 mmol/L (22-26); HGB O2 Sat 88.9 % (95-100); Ionized Calcium Level - ABG 1.1 mmol/L (1.1-1.4); Methemoglobin 0.5 % (0.4-1.5); Oxygen Saturation ABG 90.4; PO2 ABG 57.7 mmHg (80.0-100.0); Potassium Level - ABG 3.1 mmol/L (3.5-5.0); Total Hemoglobin 14.6 g/dL (14-18)
[2023-02-28 12:46] LABS: Blood Gas Operator Identificat MONRO; Blood Gas Sample Site Radial, left; Oxygen Device NC
[2023-02-28 13:01] LABS: Iron 18 ug/dL (59-158); Percent Saturation 10.8 % (20-50); Total Iron Binding Capacity 166 mcg/dl; Unsaturated Iron Binding 148 ug/dL (112-347)
[2023-02-28] MEDS: sodium chloride 0.9% 1,000 ML 999 ML IV (13:01)
[2023-02-28 13:17] LABS: Vitamin B12 1106 pg/mL (232-1245)
[2023-02-28 13:49] LABS: Methicillin-Resist S.aureu PCR NOT DETECTED (NOT DETECTED)
[2023-02-28] MEDS: sodium chloride 0.9% 1,000 ML 125 ML IV (14:21)
--- NOTE | 2023-02-28 15:28 | PC.NURSE ---
pt with noted ectopy ,, doctor notified at this time lab ordered
[2023-02-28 15:55] LABS: Bilirubin Urine Neg (Negative); Blood Urine 3+ (Negative); Glucose Urine UA Norm (Normal); Ketones Urine 1+ (Negative); Nitrate Urine Negative (Negative); Protein Urine Trace (Negative); Urine Appearance SL Hazy (CLEAR); Urine Color Straw (Yellow); Urobilinogen Urine Norm (Negative); pH Urine 5 (5-7)
[2023-02-28 15:56] LABS: Add Urine Microscopic? YES; Bacteria Urine 1+ /hpf; Leukocyte Esterase Urine Trace (Negative); RBC Urine 0-4 /hpf (0-2); WBC Urine 0-4 /hpf (0-5)
[2023-02-28 15:57] LABS: Amorphous Sediment Urine 1+ /hpf; Uric Acid Crystals Urine 0-4 /hpf
[2023-02-28 15:59] LABS: Add Urine Culture? No
[2023-02-28 16:06] LABS: Potassium, Radom Urine 44 mmol/L; Urine Creatinine 58 mg/dL (39-259)
[2023-02-28 16:14] LABS: Urine Random Chloride 19 mmol/L; Urine Random Sodium 18 mmol/L
[2023-02-28 16:16] LABS: Partial Thromboplastin Time 53.8 SECONDS (23.9-36.7)
--- NOTE | 2023-02-28 16:32 | P.PN_ITS ---
Subjective Subjective: Hospital course, labs appreciated. On examination patient is on 10 L of high flow nasal cannula saturating more than 92%. Denies any nausea, vomiting, headache. Is more awake and alert with patient's DPOA/friend at bedside. Patient is able to have complete conversation. Urine output seems to be improving. Document urine output of around 2 L in last 24 hours. Blood work appreciated. Vitals/I&O/Wt Last Vital Signs Temp 98 F 02/28/23 14:00 Pulse 99 02/28/23 16:00 Resp 22 H 02/28/23 16:00 BP 110/67 02/28/23 16:00 Pulse Ox 94 02/28/23 16:00 O2 Del Method High Flow Nasal Cannula 02/28/23 15:54 O2 Flow Rate 10 02/28/23 15:54 02/28/23 02/28/23 02/28/23 06:59 14:59 22:59 Intake Total 239.71 / 538.50 2335.847 / 2335.847 149.619 / 2485.466 Output Total 1000 / 2000 Balance -760.29 / -1461.50 2335.847 / 2335.847 149.619 / 2485.466 Weight last 48 hrs Weight 79.379 kg Weight 79.379 kg Physical Exam Narrative: General: No acute distress, AO x3, NC oxygen supplementation, sick appearing HEENT: PERRLA, pupils bilaterally equal and reactive Chest:Bronchial breath sounds b/l ,, coarse crackles diffuse mostly in lower zone bilaterally, diffuse rhonchi all over lung toscano CVS: S1-S2 regular, no murmurs, no tachycardia, no gallops, no rubs Abdomen: Soft, nontender, no organomegaly, bowel sounds present, morbidly obese Neuro: No focal deficits, no facial deformity, AO x3, power 5/5 in all limbs Urinary Catheter Management: Vazquez: Cath Placed During This Visit: yes Reason for Continuing Indwelling Catheter: Accurate Measurement of Urinary Output in Critically Ill Patients Urinary Catheter Date of Insertion: 02/27/23 Urinary Catheter Time of Insertion: 10:51 Data 02/28/23 03:56 02/28/23 03:56 Micro: Microbiology 02/27/23 15:08 Blood Culture - Preliminary Blood NEGATIVE TO DATE 02/27/23 13:24 Blood Culture - Preliminary Blood Staphylococcus species 02/27/23 10:48 Urine Culture - Preliminary Urine,Clean Catch Gram Negative Rods A&P Assessment and plan (1) STEMI (ST elevation myocardial infarction): With extremely elevated troponin of more than 8000. Post emergent cardiac angiogram on 02/27. Found to have occluded RCA with collateralization, unable to revascularize. Continue with aspirin, Plavix, heparin drip. Appreciate cardiology recommendations. Echocardiogram shows severe RWMA in inferior basal to apical along with basal to mid inferior septal wall, grade 1 diastolic dysfunction with EF of 55%. Plan to add low-dose beta-joaquim if hemodynamically remained stable. Patient having frequent VPCs with episodes of NSVT. Monitor electrolytes including magnesium. Keep potassium around 4, magnesium around 2. Start on metoprolol 12.5 mg twice daily. (2) Pulmonary emboli: Patient with evidence of bilateral pulmonary emboli on CTA. No active signs of right heart strain. Heparin drip. We will switch to Eliquis closer to discharge. Continue to follow closely (3) Acute hypoxic respiratory failure: In setting of COPD exacerbation, possible aspiration pneumonitis and significant bilateral pulmonary emboli on admission. Treatment of PE as above. Oxygen supplementation keeping saturation over 90%. Patient is DNR/DNI. Respiratory viral panel negative. (4) Aspiration pneumonitis: Cannot rule out given patient sounded suspicious conditions with fallen down. MRSA swab pending. Follow-up sputum culture, blood culture. For now continue with IV Zosyn. If becomes hemodynamically unstable or febrile will plan for vancomycin. (5) COPD with acute exacerbation: Patient with history of significant tobacco use. Appreciate CT chest. Continue with DuoNebs every 4 hour, Pulmicort twice daily. Add aggressive pulmonary toilet with I-S and Acapella. Continue with Solu-Medrol 60 mg every 12 hourly. Will wean in next 24 hours. (6) ZEN (acute kidney injury): Patient with evidence of significant acute kidney injury. Most likely in setting of ST elevation [place], severe rhabdomyolysis. Urine output seems to be improving. Along with uremia and high anion gap metabolic acidosis and hyponatremia. Strict input output charting. Patient's echo shows a normal EF with diastolic function. Confirm with card iology. 1 L fluid bolus followed by increasing normal saline to 125 cc/h. Monitor fluid status and watch for fluid overload. Vazquez catheterization. Repeat urinalysis, urine lites, urine creatinine. Check urine eosinophils. Renal ultrasound ruled out obstructive nephropathy. (7) High anion gap metabolic acidosis: Repeat ABG. If has persistent acidosis on ABG will plan for bicarb drip otherwise will start on oral bicarb supplementation 3 times daily. In setting of acute kidney injury. Monitor daily. (8) Hyponatremia: Most likely in setting of renal failure and chronic alcoholism. Continue with fluids as above. Monitor daily. (9) Rhabdomyolysis: Most likely in setting of fall. Monitor CPK daily. IV fluids as above. (10) Alcoholism: Patient with history of significant alcohol intake It is not known when the patient last drank. His alcohol level 0 Initiate thiamine and folate May require CIWA protocol. Gagan initiate cautiously. (11) Transaminitis: Patient with transaminitis Check hepatitis panel May be secondary to sepsis, alcoholism, cardiac dysfunction. (12) UTI (urinary tract infection): Patient with evidence of UTI on catheterized specimen Urine culture Blood culture Zosyn IV (13) Sepsis: Patient qualifies for sepsis diagnosis with encephalopathy, hypotension, source of infection of urine, multiorgan dysfunction including acute kidney injury. Blood cultures from admission 1 out of 4 bottles growing Staphylococcus. Urine culture growing gram-negative rods. Cannot rule out blood culture contaminant. MRSA swab negative. Repeat blood cultures. Continue on Zosyn. Cannot rule out contamination but as patient is critically sick for now we will add vancomycin. Will await sensitivities. (14) Acute encephalopathy: Patient with evidence of acute encephalopathy CT head negative Check TSH Initiate thiamine secondary to his history of alcoholism This is likely multifactorial. Monitor closely for improvement. No obvious focal neurologic deficits. (15) Physical deconditioning: If remains hemodynamically stable will plan for PT in next 24 hours. Plan CODE STATUS: Discussed in detail with patient at bedside as he is more awake and alert with patient's DPOA. He is agreeable for patient's friend Ms. Armstrong to be DPOA. Patient does not want any artificial life support, chest compressions or artificial feeds. He is thinking about possible need of dialysis. CODE STATUS DNR/DNI. He is agreeable with continuation of current treatment plan. Heparin drip will suffice as DVT prophylaxis Start on renal nondialysis diet Protonix for PUD prophylaxis Attestations Medical Necessity Statement*: Requires further ligation for management of hypoxic respiratory failure, ZEN in setting of ST elevation [place], rhabdomyolysis, PE, high anion gap metabolic acidosis Diagnoses STEMI (ST elevation myocardial infarction) I21.3 Pulmonary emboli I26.99 Acute hypoxic respiratory failure J96.01 Aspiration pneumonitis J69.0 COPD with acute exacerbation J44.1 ZEN (acute kidney injury) N17.9 High anion gap metabolic acidosis E87.29 Hyponatremia E87.1 Rhabdomyolysis M62.82 Alcoholism F10.20 Transaminitis R74.01 UTI (urinary tract infection) N39.0 Sepsis A41.9 Acute encephalopathy G93.40 Physical deconditioning R53.81
[2023-02-28 16:37] LABS: Anion Gap 18.1 (5-19); Blood Urea Nitrogen 59 mg/dL (8-23); Carbon Dioxide 17 mmol/L (22-29); Chloride 98 mmol/L (98-107); Glomerular Filtration Rate 31.7 mL/min (90-130); Glucose 135 mg/dL (65-115); Magnesium 1.9 mg/dL (1.7-2.3); Osmolality Calculated 289 mOsm/kg (285-295); Phosphorus 4.3 mg/dL (2.5-4.5); Potassium 3.1 mmol/L (3.5-5.1); Sodium 130 mmol/L (136-145)
[2023-02-28] MEDS: magnesium sulfate premix 1 GM/100 ML PIGGYBACK IV (16:51)
[2023-02-28] MEDS: sodium bicarbonate 650 mg Tablet PO ×2 (16:54→21:08)
[2023-02-28] MEDS: potassium chloride ER 20 mEq Tablet 80 MEQ PO (16:54)
[2023-02-28] MEDS: metoprolol tartrate 25 mg Tablet 12.5 MG PO ×2 (16:57→21:08)
[2023-02-28 17:05] LABS: Eosinophil Urine No Eosinophils Seen; Urine Eosinophil Count 0 (0-0)
[2023-02-28] MEDS: vancomycin 1,250 MG/250 ML PIGGYBACK 200 MG IV (17:38)
--- NOTE | 2023-02-28 19:08 | PC.NURSE ---
more alert today and conversing with staff taking po liquids and montor vs skin tear on left arm dressed and cleansed large loose bm am cleaned scrotom red and dark areas also noted inner buttock area near rectum excoriated and discolored when cleaning ointment applied and position off bottom... linen change and viki care frequent with ointment applied
--- NOTE | 2023-02-28 22:45 | PC.NURSE ---
Patient had two loose stools that appeared bloody. Sample sent to lab and hospitalist notified of concerns and heparin drip. Patient's last Hgb noted >15.
[2023-03-01] VITALS (30 sets, daily range): BP systolic 91–143; BP diastolic 61–95; PULSE 82–135; RESP 20–38; TEMP 36.6; O2SAT 86–98
[2023-03-01] MEDS: sodium chloride 0.9% 1,000 ML 125 ML IV ×4 (00:02→23:32)
[2023-03-01] MEDS: ipratropium-albuterol 3 mL Neb INHALATION ×6 (00:19→20:21)
[2023-03-01] MEDS: methylPREDNISolone sod succ 60 MG in water for injection-sterile 0.96 ML 11 MG IVP (00:19)
[2023-03-01 01:12] LABS: Estmated Average Glucose 100; Hemoglobin A1C 5.1 % (4.0-6.0)
[2023-03-01 01:14] LABS: Creatine Phosphokinase 2454 U/L (39-308)
[2023-03-01 01:39] LABS: Basophils # 0.1 10^3/uL (0.0-0.1); Basophils % 0.6 %; Hematocrit 35.3 % (37-53); Lymphocytes # 0.7 10^3/uL (0.8-4.8); Mean Corpuscular HGB Conc 35.4 g/dL (30-55); Mean Corpuscular Hemoglobin 31.3 pg (27-33); Mean Corpuscular Volume 88.5 fl (82-101); Mean Platelet Volume 11.2 fL (7.4-10.4); Monocytes # 0.6 10^3/uL (0.2-0.9); Monocytes % 2.6 %; Neutrophils # 20.08 10^3/uL (1.8-7.7); Neutrophils % 93.3 %; Nucleated Red Blood Cells % 0 %; Platelet Count 164 10^3/cmm (157-399); Red Blood Count 3.99 10^6/uL (3.85-5.65); Red Cell Distribution Width 13.8 % (12.1-15.1); White Blood Count 21.51 10^3/uL (3.29-11.43)
[2023-03-01 01:58] LABS: Cholesterol 109 mg/dL (0-200); HDL Cholesterol 33 mg/dL (60-100); LDL Cholesterol Calculated 55 mg/dL (50-129); Partial Thromboplastin Time 71.9 SECONDS (23.9-36.7); Triglycerides 104 mg/dL (0-150); VLDL Cholestrol Calculation 21 mg/dL (0-30)
[2023-03-01 01:59] LABS: Alanine Aminotransferase 65 U/L (0-41); Albumin Level 2.3 g/dL (3.5-5.2); Alkaline Phosphatase 56 U/L (40-130); Anion Gap 15.7 (5-19); Aspartate Amino Transferase 82 U/L (0-40); Blood Urea Nitrogen 51 mg/dL (8-23); Calcium 8.4 mg/dL (8.5-10.5); Carbon Dioxide 18 mmol/L (22-29); Chloride 104 mmol/L (98-107); Globulin 3.3 g/dL (1.3-4.6); Glomerular Filtration Rate 40.4 mL/min (90-130); Glucose 105 mg/dL (65-115); Osmolality Calculated 292 mOsm/kg (285-295); Potassium 3.7 mmol/L (3.5-5.1); Sodium 134 mmol/L (136-145); Total Bilirubin 0.8 mg/dL (0.15-1.2); Total Protein 5.6 g/dL (6.6-8.7)
--- NOTE | 2023-03-01 02:57 | ECG_ITS ---
[facility] Test Date: 2023-03-01 Pat Name: Rodrigo Shoemaker Department: Room: ICU07 Gender: Male Chemical Maker: : 1955 Requested By: Thu Mercado Order Number: [id number] Irma MD: Frances Francois M.D. Measurements Intervals [place] Rate: 127 P: 62 WV: 182 QRS: 75 QRSD: 157 T: -16 QT: 365 QTc: 531 Interpretive Statements SINUS TACHYCARDIA WITH FREQUENT VENTRICULAR PREMATURE COMPLEXES INDETERMINATE AXIS RIGHT BUNDLE BRANCH BLOCK [120+ ms QRS DURATION, UPRIGHT V1, 40+ ms S IN I/aVL/V4/V5/V6] INTERPRETATION BASED ON A DEFAULT AGE OF 40 YEARS Compared to ECG 02/27/2023 15:59:43 Ventricular premature complex(es) now present Indeterminate axis now present Right-axis deviation no longer present Electronically Signed On 03-01-2023 15:34:00 SAMPLE BOOK MAKER by Frances Francois M.D. [id number]
[2023-03-01] MEDS: magnesium sulfate premix 1 GM/100 ML PIGGYBACK IV (03:38)
[2023-03-01] MEDS: lidocaine 1% 5 ML in potassium chloride premix 100 ML 26.25 ML IV (03:39)
[2023-03-01] MEDS: piperacillin-tazobactam 3.375 GM in sodium chloride 0.9% (plus) 50 ML IV ×3 (04:20→21:52)
--- NOTE | 2023-03-01 04:33 | PC.NURSE ---
Patient was observed to go into bigeminy and trigeminy with triplets. No chest pain or SOB reported by patient. Hospitalist notified and order for mag/K+ received. Patient responded well to treatment with normal sinus rhythm returned. Patient has had frequent loose stools throughout the night. Barrier cream applied to excoriated areas. Patient reports severe discomfort during cleaning.
[2023-03-01] MEDS: heparin drip 25,000 UNIT/500 ML PREMIX 31 UNIT IV (05:59)
[2023-03-01 06:01] LABS: Hematocrit 36.2 % (37-53)
[2023-03-01 06:32] LABS: Partial Thromboplastin Time 30.5 SECONDS (23.9-36.7)
--- NOTE | 2023-03-01 07:02 | PC.NURSE ---
Heparin drip held for new bag while awaiting cardiology consult regarding heparin drip and Hgb drop along with fecal occult positive stool. New ptt not treated due to momentary stop in drip.
[2023-03-01] MEDS: budesonide 0.5 mg/2 mL Neb INHALATION ×2 (07:38→20:21)
--- NOTE | 2023-03-01 09:00 | PC.NURSE ---
awaken this am hair washed and tangles removed ,, shaved as tolerated per pt ... large amts of loose liquid green bm noted , excoriated scrotom and between butt checks noted discoleration left area position off bottom and frequent viki care done
[2023-03-01] MEDS: pantoprazole 40 mg SDV IVP ×2 (09:51→17:49)
[2023-03-01] MEDS: sodium bicarbonate 650 mg Tablet PO ×3 (09:52→21:53)
[2023-03-01] MEDS: multivitamin therapeutic Tablet 1 TAB PO (09:52)
[2023-03-01] MEDS: aspirin 81 mg EC Tablet PO (09:52)
[2023-03-01] MEDS: folic acid 1 mg Tablet PO (09:52)
[2023-03-01] MEDS: thiamine 100 mg Tablet PO (09:52)
[2023-03-01] MEDS: metoprolol tartrate 25 mg Tablet 12.5 MG PO (09:53)
--- NOTE | 2023-03-01 10:39 | PM.PN ---
Subjective Subjective: Patient is doing well. He had bloody bowel movement overnight. Vitals/I&O/Wt Last Vital Signs Temp 98.1 F 02/28/23 19:00 Pulse 90 03/01/23 07:41 Resp 22 H 03/01/23 07:41 BP 110/77 03/01/23 07:00 Pulse Ox 96 03/01/23 07:41 O2 Del Method High Flow Nasal Cannula 03/01/23 07:41 O2 Flow Rate 7 03/01/23 07:41 02/28/23 03/01/23 03/01/23 23:59 06:59 14:59 Intake Total 1155 / 1155 Output Total Balance 1155 / 1155 Weight last 48 hrs Weight 174 lb Weight 175 lb Physical Exam Narrative: GENERAL: Patient is alert NECK: No jugular vein distension. [] HEENT: No cyanosis. No icterus. No pallor. [] HEART: Regular rate and rhyhtm. no murmur LUNGS: Diminished air entry CENTRAL NERVOUS SYSTEM: Alert EXTREMITIES: Lower extremities with 1+ edema bilaterally. Urinary Catheter Management: Vazquez: Cath Placed During This Visit: yes Reason for Continuing Indwelling Catheter: Accurate Measurement of Urinary Output in Critically Ill Patients Urinary Catheter Date of Insertion: 02/27/23 Urinary Catheter Time of Insertion: 10:51 Data 03/01/23 11:18 03/01/23 01:10 WE[employer] EQUIPMENT OPERATOR Micro: Microbiology 02/27/23 10:48 Urine Culture - Final Urine,Clean Catch Escherichia coli 02/28/23 22:20 Occult Blood (FIT) - Final Stool - Stool Aspirate 02/28/23 17:23 Blood Culture - Preliminary Blood SPECIMEN COLLECTED 02/28/23 17:23 Blood Culture - Preliminary Blood SPECIMEN COLLECTED 02/28/23 14:30 Bacterial Antigens - Final Urine Kidney 02/28/23 14:30 Legionella Urinary Antigen - Final Unknown Source 02/27/23 15:08 Blood Culture - Preliminary Blood NEGATIVE TO DATE 02/27/23 13:24 Blood Culture - Preliminary Blood Staphylococcus species A&P Assessment and plan (1) Acute encephalopathy: (2) Pulmonary emboli: (3) ST elevation: (4) Rhabdomyolysis: Plan Patient had late presentation of ST elevation CA with collaterals. Downtrending troponin. He is chest pain-free. Medical management as balloon angioplasty did not restore any blood flow. Echo showed normal LV systolic function without inferior wall regional wall motion abnormalities. Anticoagulation with heparin for now to treat PE. Patient had GI bleed last night. Will need further work-up. Stop Plavix. If has more bloody bowel movement, can stop aspirin as well. Creatinine is downtrending. Monitor Thank you for involving us with care of this patient. We will continue to follow. Please call with questions Attestations Medical Necessity Statement*: Care expected to cross 2 midnights. Coding Level of Care Code Acute Code for Chg Fwd Diagnoses Acute encephalopathy G93.[address] elevation R94.31 Rhabdomyolysis M62.82
[2023-03-01 12:56] LABS: Partial Thromboplastin Time 51.6 SECONDS (23.9-36.7)
--- NOTE | 2023-03-01 15:59 | P.PN_ITS ---
Subjective Subjective: No acute events overnight. Patient has remained hemodynamically stable and afebrile. Patient today morning on examination a lot more awake and alert. He is down to 4 L of high flow nasal cannula saturating more than 90%. Patient having less episodes of ectopy and no more nonsustained V. tach on telemetry. Has remained hemodynamically stable and afebrile. Patient did have multiple episodes of diarrhea with few episodes of hematochezia overnight. Denies of having any headache or dizziness. Tolerating diet well. Blood work shows a white count 21,000, hemoglobin at 12.5, CMP showing impr ovement in sodium up to 134, creatinine improving to 1.7, BUN of 51, AST/ALT down to 82/65, CPK elevated to more than 2400. Document urine output of around 3.3 L in last 24 hours. Vitals/I&O/Wt Last Vital Signs Temp 98 F 03/01/23 13:00 Pulse 104 H 03/01/23 15:20 Resp 22 H 03/01/23 15:20 BP 111/77 03/01/23 15:00 Pulse Ox 93 03/01/23 15:20 O2 Del Method High Flow Nasal Cannula 03/01/23 15:20 O2 Flow Rate 4 03/01/23 15:20 03/01/23 03/01/23 03/01/23 06:59 14:59 22:59 Intake Total 3041.750 / 3041.750 Output Total Balance 3041.750 / 3041.750 Weight last 48 hrs Weight 78.925 kg Weight 79.379 kg Physical Exam Narrative: General: No acute distress, AO x3, NC oxygen supplementation, sick appearing HEENT: PERRLA, pupils bilaterally equal and reactive Chest:Bronchial breath sounds b/l ,, coarse crackles diffuse mostly in lower zone bilaterally, diffuse rhonchi all over lung toscano CVS: S1-S2 regular, no murmurs, no tachycardia, no gallops, no rubs Abdomen: Soft, nontender, no organomegaly, bowel sounds present, morbidly obese Neuro: No focal deficits, no facial deformity, AO x3, power 5/5 in all limbs Urinary Catheter Management: Vazquez: Cath Placed During This Visit: yes Reason for Continuing Indwelling Catheter: Accurate Measurement of Urinary Output in Critically Ill Patients Urinary Catheter Date of Insertion: 02/27/23 Urinary Catheter Time of Insertion: 10:51 Data 03/01/23 11:18 03/01/23 01:10 INTERLACER Micro: Microbiology 02/27/23 10:48 Urine Culture - Final Urine,Clean Catch Escherichia coli 02/28/23 22:20 Occult Blood (FIT) - Final Stool - Stool Aspirate 02/28/23 17:23 Blood Culture - Preliminary Blood SPECIMEN COLLECTED 02/28/23 17:23 Blood Culture - Preliminary Blood SPECIMEN COLLECTED 02/28/23 14:30 Bacterial Antigens - Final Urine Kidney 02/28/23 14:30 Legionella Urinary Antigen - Final Unknown Source 02/27/23 15:08 Blood Culture - Preliminary Blood NEGATIVE TO DATE 02/27/23 13:24 Blood Culture - Preliminary Blood Staphylococcus species A&P Assessment and plan (1) STEMI (ST elevation myocardial infarction): With extremely elevated troponin of more than 8000. Post emergent cardiac angiogram on 02/27. Found to have occluded RCA with collateralization, unable to revascularize. Continue with aspirin, heparin drip, atorvastatin 20 mg daily. Hold off on Plavix given hematochezia development overnight. Appreciate cardiology recommendations. Echocardiogram shows severe RWMA in inferior basal to apical along with basal to mid inferior septal wall, grade 1 diastolic dysfunction with EF of 55%. Plan to add low-dose beta-joaquim if hemodynamically remained stable. Patient having frequent VPCs with episodes of NSVT. Monitor electrolytes including magnesium. Keep potassium around 4, magnesium around 2. Patient tolerated metoprolol well. Increased to 25 mg twice daily. (2) Pulmonary emboli: Patient with evidence of bilateral pulmonary emboli on CTA. No active signs of right heart strain. Heparin drip. We will switch to Eliquis closer to discharge. Continue to follow closely. (3) Acute hypoxic respiratory failure: In setting of COPD exacerbation, possible aspiration pneumonitis and significant bilateral pulmonary emboli on admission. Treatment of PE as above. Oxygen supplementation keeping saturation over 90%. Oxygen requirements have been coming down. Patient is DNR/DNI. Respiratory viral panel negative. (4) Hematochezia: Most likely in setting of chronic alcoholism with acute stress of dramatic hospitalization along with DAPT and heparin drip. Protonix 40 mg twice daily, Carafate ACHS. Stop Plavix as above. For now continue with aspirin and heparin drip. If patient continues to have hematochezia with hemodynamic instability or significant drop in hemoglobin will plan to discontinue heparin drip with possibility of IVC filter. Monitor hemoglobin every 6 hourly for now. Check stool studies. Checks stool for C. difficile. Continue with IV vancomycin and Zosyn for now. (5) Aspiration pneumonitis: Cannot rule out given patient sounded suspicious conditions with fallen down. MRSA swab negative. Follow-up sputum culture, blood culture. For now continue with IV Zosyn and vancomycin. (6) COPD with acute exacerbation: Patient with history of significant tobacco use. Appreciate CT chest. Continue with DuoNebs every 4 hour, Pulmicort twice daily. Add aggressive pulmonary toilet with I-S and Acapella. Wean Solu-Medrol 60 mg IV daily. We will plan to switch to oral steroid with a quick taper within next 24 hours patient's oxygen requirement continue to trend down. (7) Sepsis: Patient qualifies for sepsis diagnosis with encephalopathy, hypotension, source of infection of urine, multiorgan dysfunction including acute kidney injury. Blood cultures from admission 1 out of 4 bottles growing Staphylococcus. Urine culture growing gram-negative rods. Cannot rule out blood culture contaminant. MRSA swab negative. Repeat blood cultures sent on 02/28. Continue on Zosyn. Cannot rule out contamination but as patient is critically sick for now we will add vancomycin. Will await sensitivities. (8) ZEN (acute kidney injury): Patient with evidence of significant acute kidney injury. Most likely in setting of ST elevation [place], severe rhabdomyolysis. Urine output improving. Along with uremia and high anion gap metabolic acidosis and hyponatremia. Strict input output charting. Monitor BMP daily. Renal ultrasound ruled out obstructive nephropathy. Continue with normal saline at 125 cc/h. Repeat BMP in evening. (9) High anion gap metabolic acidosis: Metabolic acidosis improving but patient still has high anion gap. Continue with oral sodium bicarb tablets for now. Renal nondialysis diet. (10) Hyponatremia: Improving. Most likely in setting of renal failure and chronic alcoholism. Continue with fluids as above. Monitor daily. (11) Rhabdomyolysis: Most likely in setting of fall. Monitor CPK daily. IV fluids as above. (12) Alcoholism: Patient with history of significant alcohol intake It is not known when the patient last drank. His alcohol level 0 Initiate thiamine and folate May require CIWA protocol. Gagan initiate cautiously. (13) Transaminitis: Patient with transaminitis Check hepatitis panel May be secondary to sepsis, alcoholism, cardiac dysfunction. (14) UTI (urinary tract infection): Patient with evidence of UTI on catheterized specimen Urine culture Blood culture Zosyn IV (15) Acute encephalopathy: Patient with evidence of acute encephalopathy CT head negative Check TSH Initiate thiamine secondary to his history of alcoholism This is likely multifactorial. Monitor closely for improvement. No obvious focal neurologic deficits. (16) Physical deconditioning: If remains hemodynamically stable will plan for PT in next 24 hours. Plan CODE STATUS: Discussed in detail with patient at bedside as he is more awake and alert with patient's DPOA. He is agreeable for patient's friend Ms. Armstrong to be DPOA. Patient does not want any artificial life support, chest compressions or artificial feeds. He is thinking about possible need of dialysis. CODE STATUS DNR/DNI. He is agreeable with continuation of current treatment plan. Heparin drip will suffice as DVT prophylaxis Start on renal nondialysis diet Protonix for PUD prophylaxis Attestations Medical Necessity Statement*: Requires further hospitalization for management of respiratory failure in setting of pulmonary embolism, ST elevation ND post emergent cardiac angiogram on heparin drip, hematochezia, ZEN, sepsis with staph bacteremia Diagnoses STEMI (ST elevation myocardial infarction) I21.3 Pulmonary emboli I26.99 Acute hypoxic respiratory failure J96.01 Hematochezia K92.1 Aspiration pneumonitis J69.0 COPD with acute exacerbation J44.1 Sepsis A41.9 ZEN (acute kidney injury) N17.9 High anion gap metabolic acidosis E87.29 Hyponatremia E87.1 Rhabdomyolysis M62.82 Alcoholism F10.20 Transaminitis R74.01 UTI (urinary tract infection) N39.0 Acute encephalopathy G93.40 Physical deconditioning R53.81
[2023-03-01 17:15] LABS: Blood Urea Nitrogen 40 mg/dL (8-23); Calcium 8.3 mg/dL (8.5-10.5); Carbon Dioxide 18 mmol/L (22-29); Chloride 108 mmol/L (98-107); Glomerular Filtration Rate 60.4 mL/min (90-130); Glucose 137 mg/dL (65-115); Osmolality Calculated 296 mOsm/kg (285-295); Sodium 137 mmol/L (136-145)
[2023-03-01 17:18] LABS: Anion Gap 14.3 (5-19); Potassium 3.3 mmol/L (3.5-5.1)
[2023-03-01] MEDS: sucralfate 1 gm Tablet PO ×2 (17:49→21:53)
[2023-03-01] MEDS: potassium chloride ER 20 mEq Tablet 80 MEQ PO (17:49)
[2023-03-01] MEDS: vancomycin 1,250 MG/250 ML PIGGYBACK 200 MG IV (17:51)
[2023-03-01 17:53] LABS: Hematocrit 36.6 % (37-53)
[2023-03-01] MEDS: metoprolol tartrate 25 mg Tablet PO (21:53)
[2023-03-01] MEDS: heparin drip 25,000 UNIT/500 ML PREMIX 32 UNIT IV (21:58)
[2023-03-01 23:17] LABS: Hematocrit 33.9 % (37-53)
[2023-03-02] VITALS (24 sets, daily range): BP systolic 118–161; BP diastolic 84–123; PULSE 92–113; RESP 19–34; TEMP 36.3–36.9; O2SAT 88–99
[2023-03-02 00:01] LABS: Partial Thromboplastin Time 61.2 SECONDS (23.9-36.7)
[2023-03-02] MEDS: ipratropium-albuterol 3 mL Neb INHALATION ×7 (00:17→23:22)
[2023-03-02 05:03] LABS: Basophils # 0.1 10^3/uL (0.0-0.1); Basophils % 0.3 %; Hematocrit 39.3 % (37-53); Lymphocytes # 1.2 10^3/uL (0.8-4.8); Lymphocytes % 5.4 %; Mean Corpuscular HGB Conc 34.4 g/dL (30-55); Mean Corpuscular Hemoglobin 31.7 pg (27-33); Mean Corpuscular Volume 92.3 fl (82-101); Mean Platelet Volume 11.7 fL (7.4-10.4); Monocytes # 0.7 10^3/uL (0.2-0.9); Monocytes % 3.3 %; Neutrophils # 19.91 10^3/uL (1.8-7.7); Neutrophils % 89.9 %; Nucleated Red Blood Cells % 0.1 %; Platelet Count 164 10^3/cmm (157-399); Red Blood Count 4.26 10^6/uL (3.85-5.65); Red Cell Distribution Width 14.6 % (12.1-15.1); White Blood Count 22.15 10^3/uL (3.29-11.43)
[2023-03-02 05:35] LABS: Alanine Aminotransferase 56 U/L (0-41); Albumin Level 2.6 g/dL (3.5-5.2); Alkaline Phosphatase 58 U/L (40-130); Anion Gap 14.7 (5-19); Aspartate Amino Transferase 59 U/L (0-40); Blood Urea Nitrogen 32 mg/dL (8-23); Calcium 8.3 mg/dL (8.5-10.5); Carbon Dioxide 18 mmol/L (22-29); Chloride 108 mmol/L (98-107); Globulin 3.1 g/dL (1.3-4.6); Glomerular Filtration Rate 66.8 mL/min (90-130); Glucose 86 mg/dL (65-115); Osmolality Calculated 290 mOsm/kg (285-295); Potassium 3.7 mmol/L (3.5-5.1); Sodium 137 mmol/L (136-145); Total Bilirubin 0.9 mg/dL (0.15-1.2); Total Protein 5.7 g/dL (6.6-8.7)
[2023-03-02 05:39] LABS: Magnesium 1.7 mg/dL (1.7-2.3); Phosphorus 1.7 mg/dL (2.5-4.5)
[2023-03-02 05:41] LABS: Creatine Phosphokinase 1128 U/L (39-308)
[2023-03-02] MEDS: piperacillin-tazobactam 3.375 GM in sodium chloride 0.9% (plus) 50 ML IV ×3 (05:48→20:55)
--- NOTE | 2023-03-02 05:51 | XRR_ITS ---
PROCEDURE INFORMATION: Exam: XR Chest Exam date and time: 03/02/2023 7:16 AM Age: 67 years old Clinical indication: Other: Hypoxia; Additional info: Hypoxia, suspect chf TECHNIQUE: Imaging protocol: Radiologic exam of the chest. Views: 1 view. COMPARISON: CR XR chest 1V portable [id number] 02/27/2023 9:52 AM FINDINGS: Lungs: Stable mild biapical pleuroparenchymal thickening. Bilateral central predominant patchy streaky opacification. No dense consolidation. Pleural spaces: No substantial pleural effusion or pneumothorax. Heart/Mediastinum: Unremarkable. No cardiomegaly. Vasculature: Aortic atherosclerotic calcification. Bones/joints: Unremarkable. XR/XR chest 1V portable [id number] IMPRESSION: Bilateral lung findings suggestive of pulmonary edema. Aspiration or pulmonary hemorrhage could have similar appearance.
[2023-03-02] MEDS: FUROsemide 10 mg/mL SDV 4mL 40 MG IVP (05:55)
--- NOTE | 2023-03-02 06:02 | PC.NURSE ---
Lasix Patient taking very deep breaths, leaning forward, and stating that he is very short of breath. Respiratory rate increased into the upper 20s with an oxygen saturation of low 80s, while also using accessory muscles to breathe. Lungs sound coarse with crackles. Dr. Mercado notified; orders received to discontinue maintenance NS fluid and to administer 40 mg lasix IVP once now. See MAR for details.
[2023-03-02] MEDS: sucralfate 1 gm Tablet PO ×4 (06:09→20:40)
--- NOTE | 2023-03-02 07:30 | PM.PN ---
Subjective Subjective: Patient is overall doing well. No chest pain Vitals/I&O/Wt Last Vital Signs Temp 98.4 F 03/02/23 04:00 Pulse 103 H 03/02/23 07:00 Resp 34 H 03/02/23 07:00 BP 141/102 03/02/23 07:00 Pulse Ox 90 03/02/23 07:00 O2 Del Method Nasal Cannula 03/02/23 04:00 O2 Flow Rate 4 03/02/23 04:00 03/01/23 03/02/23 03/02/23 22:59 06:59 14:59 Intake Total 2027.833 / 5069.583 1154 / 6223.583 Output Total 1800 / 1800 2350 / 4150 Balance 227.833 / 3269.583 -1196 / 2073.583 Weight last 48 hrs Weight 174 lb Physical Exam Narrative: GENERAL: Patient is alert NECK: No jugular vein distension. [] HEENT: No cyanosis. No icterus. No pallor. [] HEART: Regular rate and rhyhtm. no murmur LUNGS: Diminished air entry CENTRAL NERVOUS SYSTEM: Alert EXTREMITIES: Lower extremities with 1+ edema bilaterally. Urinary Catheter Management: Vazquez: Cath Placed During This Visit: yes Reason for Continuing Indwelling Catheter: Accurate Measurement of Urinary Output in Critically Ill Patients Urinary Catheter Date of Insertion: 02/27/23 Urinary Catheter Time of Insertion: 10:51 Data 03/03/23 03:38 03/03/23 03:38 Micro: Microbiology 02/28/23 17:23 Blood Culture - Preliminary Blood NEGATIVE TO DATE 02/28/23 17:23 Blood Culture - Preliminary Blood NEGATIVE TO DATE 02/27/23 10:48 Urine Culture - Final Urine,Clean Catch Escherichia coli A&P Assessment and plan (1) Acute encephalopathy: (2) Pulmonary emboli: (3) ST elevation: (4) Rhabdomyolysis: Plan Patient has improved significantly. Continue aspirin. Can switch heparin to Eliquis tomorrow. Thank you for involving us with care of this patient. We will continue to follow. Please call with questions Attestations Medical Necessity Statement*: Care expected to cross 2 midnights. Coding Level of Care Code Acute Code for [facility] Diagnoses Acute encephalopathy G93.[address] elevation R94.31 Rhabdomyolysis M62.82
[2023-03-02 07:45] LABS: Partial Thromboplastin Time 70.4 SECONDS (23.9-36.7)
[2023-03-02] MEDS: budesonide 0.5 mg/2 mL Neb INHALATION ×2 (08:43→19:53)
[2023-03-02] MEDS: folic acid 1 mg Tablet PO (10:12)
[2023-03-02] MEDS: metoprolol tartrate 25 mg Tablet PO ×2 (10:12→20:39)
[2023-03-02] MEDS: thiamine 100 mg Tablet PO (10:12)
[2023-03-02] MEDS: pantoprazole 40 mg SDV IVP ×2 (10:13→17:33)
[2023-03-02] MEDS: methylPREDNISolone sod succ 60 MG in water for injection-sterile 0.96 ML 11.52 MG IVP (10:13)
[2023-03-02] MEDS: phosphorus 250 mg Tablet PO ×2 (10:13→17:33)
[2023-03-02] MEDS: multivitamin therapeutic Tablet 1 TAB PO (10:13)
[2023-03-02] MEDS: aspirin 81 mg EC Tablet PO (10:13)
--- NOTE | 2023-03-02 12:38 | P.PN_ITS ---
Subjective Subjective: Patient endorses shortness of breath. Denies chest pain, fevers or chills. Denies nausea or vomiting. Medications: Reviewed: Yes Vitals/I&O/Wt Last Vital Signs Temp 98.4 F 03/02/23 04:00 Pulse 103 H 03/02/23 12:00 Resp 24 H 03/02/23 12:00 BP 150/117 03/02/23 12:00 Pulse Ox 90 03/02/23 12:00 O2 Del Method High Flow Nasal Cannula 03/02/23 08:44 O2 Flow Rate 6 03/02/23 08:44 03/01/23 03/02/23 03/02/23 22:59 06:59 14:59 Intake Total 2027.833 / 5069.583 1154 / 6223.583 50.96 / 50.96 Output Total 1800 / 1800 2350 / 4150 2550 / 2550 Balance 227.833 / 3269.583 -1196 / 2073.583 -2499.04 / -2499.04 Weight last 48 hrs Weight 78.925 kg Physical Exam Const: COMMON NORMALS: alert HENMT: COMMON NORMALS: normocephalic HEAD & SCALP: normocephalic Eye: COMMON NORMALS: EOMs intact bilaterally Neck/C-Spine: COMMON NORMALS: no JVD Lymph: LYMPHATIC: no lymphadenopathy noted Chest: COMMONS NORMALS: normal inspection of the chest Resp: COMMON NORMALS: normal respiratory effort, No retractions and No use of accessory muscles Cardio: COMMON NORMALS: no JVD, S1 normal heart sound present, S2 normal heart sound present, No gallops present (Cardio), No murmurs present (Cardio) and No rub (Cardio) HEART SOUNDS: S1 normal heart sound present and S2 normal heart sound present GI: COMMON NORMALS: Normal to inspection, nondistended, normoactive bowel sounds present, Soft to palpation and non-tender PALPATION: Yes Soft to palpation Extremity: COMMON NORMALS: normal to inspection and no pedal edema Neuro: SENSORIUM/ORIENTATION: Yes alert Psych: COMMON NORMALS: cooperative Skin: COMMON NORMALS: no rashes or lesions noted and no wounds GENERAL SKIN EXAM: no rashes or lesions noted Urinary Catheter Management: Vazquez: Cath Placed During This Visit: yes Reason for Continuing Indwelling Catheter: Accurate Measurement of Urinary Output in Critically Ill Patients Urinary Catheter Date of Insertion: 02/27/23 Urinary Catheter Time of Insertion: 10:51 Data 03/02/23 04:05 03/02/23 04:05 Micro: Microbiology 02/28/23 17:23 Blood Culture - Preliminary Blood NEGATIVE TO DATE 02/28/23 17:23 Blood Culture - Preliminary Blood NEGATIVE TO DATE 02/27/23 10:48 Urine Culture - Final Urine,Clean Catch Escherichia coli A&P Assessment and plan (1) Acute hypoxic respiratory failure: Multifactorial Continue supplemental oxygen for SPO2 goal of 88-92 Treat underlying PE and pneumoniitis Pulmonary toilet (2) Hematochezia: Reportedly recently resolved Continue to monitor bowel movements Continue IV PPI Trending blood counts (3) STEMI (ST elevation myocardial infarction): Cardiology following, appreciate recommendations Continue beta joaquim (4) Physical deconditioning: Optimized comorbidities Therapy eval (5) COPD with acute exacerbation: Continue IV steroids, rotate to prednisone with improvement Continue breathing treatments (6) Aspiration pneumonitis: Continue antibiotics (7) Pulmonary emboli: Continue heparin drip for now Will need to transition to longer acting anticoagulant eventually (8) Transaminitis: Improving Avoid hepatotoxins (9) UTI (urinary tract infection): Ux with E coli Continue broad spectrum abx Follow cultures, request lab to clarify blood culture results (10) Sepsis: Source: UTI Improving with treatment (11) Alcoholism: Discontinue CIWA Continue thiamine, folic acid, vitamin (12) Acute encephalopathy: Mentation close to baseline (13) ZEN (acute kidney injury): Resolved (14) Rhabdomyolysis: Resolved Attestations Medical Necessity Statement*: Patient requires ongoing hospitalization for IV heparin, IV antibiotics, serial labs, cardiology evaluation, and supportive care. Coding Level of Care Code Acute Code for [facility] Diagnoses Acute hypoxic respiratory failure J96.01 Hematochezia K92.1 STEMI (ST elevation myocardial infarction) I21.3 Physical deconditioning R53.81 COPD with acute exacerbation J44.1 Aspiration pneumonitis J69.0 Pulmonary emboli I26.99 Transaminitis R74.01 UTI (urinary tract infection) N39.0 Sepsis A41.9 Alcoholism F10.20 Acute encephalopathy G93.40 ZEN (acute kidney injury) N17.9 Rhabdomyolysis M62.82
[2023-03-02 13:29] LABS: Partial Thromboplastin Time 51.8 SECONDS (23.9-36.7)
[2023-03-02] MEDS: heparin drip 25,000 UNIT/500 ML PREMIX 33.59 UNIT IV (13:45)
--- NOTE | 2023-03-02 15:43 | PC.OT ---
OT EVALUATION ATTEMPTED. PATIENT UNABLE TO MAINTAIN ALERTNESS TO BEGIN EVALUATION. WILL ATTEMPT AGAIN TOMORROW.
[2023-03-02 17:10] LABS: Osmolality Urine 312 mOsm/kg (50-1200)
[2023-03-02] MEDS: vancomycin 1,250 MG/250 ML PIGGYBACK 250 MG IV (17:33)
[2023-03-02] MEDS: zinc oxide oint 30 gm 1 APPLIC TOPICAL ×3 (19:35→23:10)
[2023-03-02 20:34] LABS: Partial Thromboplastin Time 56.3 SECONDS (23.9-36.7)
[2023-03-03] VITALS (28 sets, daily range): BP systolic 117–141; BP diastolic 72–99; PULSE 83–104; RESP 15–30; TEMP 36.9; O2SAT 91–98
[2023-03-03] MEDS: zinc oxide oint 30 gm 1 APPLIC TOPICAL ×2 (01:05→03:19)
[2023-03-03 02:45] LABS: Partial Thromboplastin Time 73.7 SECONDS (23.9-36.7)
[2023-03-03] MEDS: piperacillin-tazobactam 3.375 GM in sodium chloride 0.9% (plus) 50 ML IV ×3 (03:14→21:15)
[2023-03-03 04:39] LABS: Magnesium 1.3 mg/dL (1.7-2.3); Phosphorus 3.6 mg/dL (2.5-4.5)
[2023-03-03 04:42] LABS: Basophils % 0.2 %; Hematocrit 36.5 % (37-53); Lymphocytes # 1.1 10^3/uL (0.8-4.8); Lymphocytes % 7.2 %; Mean Corpuscular HGB Conc 34.5 g/dL (30-55); Mean Corpuscular Hemoglobin 31.3 pg (27-33); Mean Corpuscular Volume 90.8 fl (82-101); Mean Platelet Volume 11.8 fL (7.4-10.4); Monocytes # 0.7 10^3/uL (0.2-0.9); Monocytes % 4.3 %; Neutrophils # 13.13 10^3/uL (1.8-7.7); Neutrophils % 86.4 %; Nucleated Red Blood Cells % 0 %; Platelet Count 180 10^3/cmm (157-399); Red Blood Count 4.02 10^6/uL (3.85-5.65); Red Cell Distribution Width 14.3 % (12.1-15.1); White Blood Count 15.19 10^3/uL (3.29-11.43)
[2023-03-03 04:53] LABS: Anion Gap 16.2 (5-19); Blood Urea Nitrogen 25 mg/dL (8-23); Calcium 8.1 mg/dL (8.5-10.5); Carbon Dioxide 20 mmol/L (22-29); Chloride 105 mmol/L (98-107); Glomerular Filtration Rate 84.2 mL/min (90-130); Glucose 108 mg/dL (65-115); Osmolality Calculated 291 mOsm/kg (285-295); Potassium 3.2 mmol/L (3.5-5.1); Sodium 138 mmol/L (136-145)
[2023-03-03] MEDS: heparin drip 25,000 UNIT/500 ML PREMIX 33.59 UNIT IV (05:31)
[2023-03-03] MEDS: potassium chloride ER 20 mEq Tablet PO (06:04)
[2023-03-03] MEDS: sucralfate 1 gm Tablet PO ×4 (06:04→21:15)
[2023-03-03] MEDS: FUROsemide 10 mg/mL SDV 4mL 40 MG IVP (08:12)
[2023-03-03] MEDS: metoprolol tartrate 25 mg Tablet PO ×2 (08:14→21:15)
[2023-03-03] MEDS: folic acid 1 mg Tablet PO (08:14)
[2023-03-03] MEDS: predniSONE 20 mg Tablet 40 MG PO (08:14)
[2023-03-03] MEDS: aspirin 81 mg EC Tablet PO (08:14)
[2023-03-03] MEDS: phosphorus 250 mg Tablet PO ×2 (08:14→17:05)
[2023-03-03] MEDS: pantoprazole 40 mg SDV IVP ×2 (08:14→17:05)
[2023-03-03] MEDS: multivitamin therapeutic Tablet 1 TAB PO (08:14)
[2023-03-03] MEDS: thiamine 100 mg Tablet PO (08:14)
[2023-03-03] MEDS: magnesium sulfate premix 2 GM/50 ML PIGGYBACK IV (08:15)
[2023-03-03] MEDS: budesonide 0.5 mg/2 mL Neb INHALATION ×2 (09:03→19:41)
[2023-03-03] MEDS: ipratropium-albuterol 3 mL Neb INHALATION ×4 (09:03→23:35)
[2023-03-03 09:44] LABS: Partial Thromboplastin Time 70.6 SECONDS (23.9-36.7)
--- NOTE | 2023-03-03 10:57 | PM.PN ---
Subjective Subjective: Patiet is doing better. No chest pain. has been diuresing well. Vitals/I&O/Wt Last Vital Signs Temp 98.5 F 03/03/23 04:37 Pulse 86 03/03/23 10:00 Resp 24 H 03/03/23 10:00 BP 135/95 03/03/23 10:00 Pulse Ox 93 03/03/23 10:00 O2 Del Method High Flow Nasal Cannula 03/03/23 08:00 O2 Flow Rate 4 03/03/23 08:00 03/02/23 03/03/23 03/03/23 22:59 06:59 14:59 Intake Total 770.092 / 1457.052 569.908 / 2026.960 340 / 340 Output Total 1350 / 3900 2350 / 6250 2550 / 2550 Balance -579.908 / -2442.948 -1780.092 / -4223.040 -2210 / -2210 Weight last 48 hrs Weight 171 lb 14.4 oz Physical Exam Narrative: GENERAL: Patient is alert NECK: No jugular vein distension. [] HEENT: No cyanosis. No icterus. No pallor. [] HEART: Regular rate and rhyhtm. no murmur LUNGS: Diminished air entry CENTRAL NERVOUS SYSTEM: Alert EXTREMITIES: Lower extremities with 1+ edema bilaterally. Urinary Catheter Management: Vazquez: Cath Placed During This Visit: yes Reason for Continuing Indwelling Catheter: Accurate Measurement of Urinary Output in Critically Ill Patients Urinary Catheter Date of Insertion: 02/27/23 Urinary Catheter Time of Insertion: 10:51 Data 03/04/23 05:55 03/04/23 05:55 Micro: Microbiology 02/27/23 13:24 Blood Culture - Final Blood Staphylococcus hominis A&P Assessment and plan (1) Acute encephalopathy: (2) Pulmonary emboli: (3) ST elevation: (4) Rhabdomyolysis: Plan Patient patient is overall stable. Can be switched to Eliquis. Continue aspirin if no more bleeding. Thank you for involving us with care of this patient. We will continue to follow. Please call with questions Attestations Medical Necessity Statement*: Care expected to cross 2 midnights. Coding Level of Care Code Acute Code for [facility] Diagnoses Acute encephalopathy G93.[address] elevation R94.31 Rhabdomyolysis M62.82
--- NOTE | 2023-03-03 10:58 | PM.PN ---
Subjective Subjective: Patient reports shortness of breath. Stools still loose. Working with therapy. Notes he is very weak. Denies nausea or vomiting. Willing to consider post acute care. Medications: Reviewed: Yes Vitals/I&O/Wt Last Vital Signs Temp 98.5 F 03/03/23 04:37 Pulse 86 03/03/23 10:00 Resp 24 H 03/03/23 10:00 BP 135/95 03/03/23 10:00 Pulse Ox 93 03/03/23 10:00 O2 Del Method High Flow Nasal Cannula 03/03/23 08:00 O2 Flow Rate 4 03/03/23 08:00 03/02/23 03/03/23 03/03/23 22:59 06:59 14:59 Intake Total 770.092 / 1457.052 569.908 / 2026.960 340 / 340 Output Total 1350 / 3900 2350 / 6250 2550 / 2550 Balance -579.908 / -2442.948 -1780.092 / -4223.040 -2210 / -2210 Weight last 48 hrs Weight 77.973 kg Physical Exam Const: COMMON NORMALS: alert ORIENTATION/CONSCIOUSNESS: Yes oriented to person HENMT: COMMON NORMALS: normocephalic HEAD & SCALP: normocephalic Eye: COMMON NORMALS: EOMs intact bilaterally Neck/C-Spine: COMMON NORMALS: no JVD Lymph: LYMPHATIC: no lymphadenopathy noted Chest: COMMONS NORMALS: normal inspection of the chest Resp: COMMON NORMALS: normal respiratory effort, No retractions and No use of accessory muscles Cardio: COMMON NORMALS: no JVD, S1 normal heart sound present, S2 normal heart sound present, No gallops present (Cardio), No murmurs present (Cardio) and No rub (Cardio) HEART SOUNDS: S1 normal heart sound present and S2 normal heart sound present GI: COMMON NORMALS: Normal to inspection, nondistended, normoactive bowel sounds present, Soft to palpation and non-tender AUSCULTATION: Yes normoactive bowel sounds PALPATION: Yes Soft to palpation Extremity: COMMON NORMALS: normal to inspection and no pedal edema Neuro: SENSORIUM/ORIENTATION: Yes alert and Yes oriented to person Psych: COMMON NORMALS: cooperative Skin: COMMON NORMALS: no rashes or lesions noted and no wounds GENERAL SKIN EXAM: no rashes or lesions noted Urinary Catheter Management: Vazquez: Cath Placed During This Visit: yes Reason for Continuing Indwelling Catheter: Accurate Measurement of Urinary Output in Critically Ill Patients Urinary Catheter Date of Insertion: 02/27/23 Urinary Catheter Time of Insertion: 10:51 Data 03/03/23 03:38 03/03/23 03:38 Micro: Microbiology 02/27/23 13:24 Blood Culture - Final Blood Staphylococcus hominis A&P Assessment and plan (1) Acute hypoxic respiratory failure: Multifactorial Continue supplemental oxygen for SPO2 goal of 88-92 Treat underlying PE and pneumoniitis Pulmonary toilet (2) Hematochezia: Continue to monitor bowel movements Continue IV PPI Trending blood counts (3) STEMI (ST elevation myocardial infarction): Cardiology following, appreciate recommendations Continue beta joaquim Continue aspirin Continue statin (4) Physical deconditioning: Optimized comorbidities Therapy, will need post acute care (5) COPD with acute exacerbation: Rotate to prednisone Continue breathing treatments (6) Aspiration pneumonitis: Continue antibiotics (7) Pulmonary emboli: Rotate to apixaban (8) Transaminitis: Improving Avoid hepatotoxins (9) UTI (urinary tract infection): Ux with E coli Continue broad spectrum abx Discontinue vancomycin (10) Sepsis: Source: UTI Improving with treatment (11) Alcoholism: Thiamine, folic acid, vitamin (12) Acute encephalopathy: Mentation close to baseline Plan DVT ppx: Apixaban Code: DNR Attestations Medical Necessity Statement*: Patient requires ongoing hospitalization for IV antibiotics, serial labs, therapy, and supportive care. Coding Level of Care Code Acute Code for [facility] Diagnoses Acute hypoxic respiratory failure J96.01 Hematochezia K92.1 STEMI (ST elevation myocardial infarction) I21.3 Physical deconditioning R53.81 COPD with acute exacerbation J44.1 Aspiration pneumonitis J69.0 Pulmonary emboli I26.99 Transaminitis R74.01 UTI (urinary tract infection) N39.0 Sepsis A41.9 Alcoholism F10.20 Acute encephalopathy G93.40
[2023-03-03] MEDS: potassium chloride ER 20 mEq Tablet 40 MEQ PO (13:34)
[2023-03-03 16:23] LABS: Partial Thromboplastin Time 28.2 SECONDS (23.9-36.7)
[2023-03-03 16:34] LABS: Vancomycin Trough 8.6 ug/mL (10-15)
[2023-03-03] MEDS: apixaban 5 mg Tablet PO (21:15)
[2023-03-04] VITALS (12 sets, daily range): BP systolic 93–129; BP diastolic 63–87; PULSE 76–102; RESP 15–17; TEMP 36.4–37.1; O2SAT 93–96
[2023-03-04] MEDS: piperacillin-tazobactam 3.375 GM in sodium chloride 0.9% (plus) 50 ML IV (05:28)
[2023-03-04] MEDS: sucralfate 1 gm Tablet PO ×4 (06:29→21:27)
[2023-03-04 06:30] LABS: Basophils % 0.2 %; Eosinophils # 0.1 10^3/uL (0.0-0.8); Eosinophils % 0.4 %; Hematocrit 39.8 % (37-53); Lymphocytes # 2.3 10^3/uL (0.8-4.8); Lymphocytes % 16.8 %; Mean Corpuscular HGB Conc 33.9 g/dL (30-55); Mean Corpuscular Hemoglobin 30.7 pg (27-33); Mean Corpuscular Volume 90.5 fl (82-101); Mean Platelet Volume 11.2 fL (7.4-10.4); Monocytes # 0.6 10^3/uL (0.2-0.9); Monocytes % 4.6 %; Neutrophils # 10.38 10^3/uL (1.8-7.7); Neutrophils % 75.5 %; Nucleated Red Blood Cells % 0 %; Platelet Count 243 10^3/cmm (157-399); Red Cell Distribution Width 14.2 % (12.1-15.1); White Blood Count 13.76 10^3/uL (3.29-11.43)
[2023-03-04 06:53] LABS: Albumin Level 2.5 g/dL (3.5-5.2); Blood Urea Nitrogen 24 mg/dL (8-23); Calcium 8.4 mg/dL (8.5-10.5); Carbon Dioxide 24 mmol/L (22-29); Chloride 103 mmol/L (98-107); Glomerular Filtration Rate 112.1 mL/min (90-130); Glucose 77 mg/dL (65-115); Magnesium 1.5 mg/dL (1.7-2.3); Phosphorus 2.8 mg/dL (2.5-4.5); Sodium 137 mmol/L (136-145)
[2023-03-04 06:54] LABS: Anion Gap 13.1 (5-19); Potassium 3.1 mmol/L (3.5-5.1)
--- NOTE | 2023-03-04 07:58 | PM.PN ---
Subjective Subjective: Patient is overall doing well. No chest pain Vitals/I&O/Wt Last Vital Signs Temp 98.5 F 03/03/23 04:37 Pulse 102 H 03/04/23 06:43 Resp 20 H 03/03/23 23:30 BP 136/98 03/03/23 18:00 Pulse Ox 95 03/03/23 23:30 O2 Del Method Nasal Cannula 03/03/23 23:30 O2 Flow Rate 3 03/03/23 23:30 03/03/23 03/04/23 03/04/23 22:59 06:59 14:59 Intake Total 100 / 864.745 50 / 914.745 30.833 / 30.833 Output Total 1500 / 6800 975 / 7775 Balance -1400 / -5935.255 -925 / -6860.255 30.833 / 30.833 Weight last 48 hrs Weight 171 lb 0.33 oz Weight 171 lb 14.4 oz Physical Exam Narrative: GENERAL: Patient is alert NECK: No jugular vein distension. [] HEENT: No cyanosis. No icterus. No pallor. [] HEART: Regular rate and rhyhtm. no murmur LUNGS: Diminished air entry CENTRAL NERVOUS SYSTEM: Alert EXTREMITIES: Lower extremities with 1+ edema bilaterally. Urinary Catheter Management: Vazquez: Cath Placed During This Visit: yes Reason for Continuing Indwelling Catheter: Acute Urinary Retention or Obstruction Urinary Catheter Date of Insertion: 02/27/23 Urinary Catheter Time of Insertion: 10:51 Data 03/05/23 04:14 03/05/23 04:14 Micro: Microbiology 02/27/23 13:24 Blood Culture - Final Blood Staphylococcus hominis A&P Assessment and plan (1) Acute encephalopathy: (2) Pulmonary emboli: (3) ST elevation: (4) Rhabdomyolysis: Plan Patient is stable. Continue Eliquis 5 mg twice daily. Continue aspirin. Outpatient cardiology follow up Thank you for involving us with care of this patient. Please call with questions Attestations Medical Necessity Statement*: Care expected to cross 2 midnights Coding Level of Care Code Acute Code for [facility] Diagnoses Acute encephalopathy G93.[address] elevation R94.31 Rhabdomyolysis M62.82
[2023-03-04] MEDS: budesonide 0.5 mg/2 mL Neb INHALATION ×2 (08:30→20:31)
[2023-03-04] MEDS: ipratropium-albuterol 3 mL Neb INHALATION ×4 (08:30→23:47)
[2023-03-04] MEDS: magnesium sulfate premix 2 GM/50 ML PIGGYBACK IV (08:41)
[2023-03-04] MEDS: thiamine 100 mg Tablet PO (08:42)
[2023-03-04] MEDS: aspirin 81 mg EC Tablet PO (08:42)
[2023-03-04] MEDS: multivitamin therapeutic Tablet 1 TAB PO (08:42)
[2023-03-04] MEDS: cefTRIAXone 1,000 MG in sodium chloride 0.9% (plus) 50 ML 100 MG IV (08:42)
[2023-03-04] MEDS: folic acid 1 mg Tablet PO (08:42)
[2023-03-04] MEDS: phosphorus 250 mg Tablet PO ×2 (08:43→17:53)
[2023-03-04] MEDS: predniSONE 20 mg Tablet 40 MG PO (08:43)
[2023-03-04] MEDS: potassium chloride ER 20 mEq Tablet 40 MEQ PO ×2 (08:43→13:44)
[2023-03-04] MEDS: metoprolol tartrate 25 mg Tablet PO ×2 (08:43→21:27)
[2023-03-04] MEDS: apixaban 5 mg Tablet PO ×2 (08:43→21:27)
[2023-03-04] MEDS: pantoprazole 40 mg SDV IVP (10:22)
[2023-03-04] MEDS: FUROsemide 10 mg/mL SDV 4mL 40 MG IVP (10:25)
--- NOTE | 2023-03-04 12:09 | P.PN_ITS ---
Subjective Subjective: Patient endorses weakness but working with therapy. Denies fevers, chills, nausea or emesis. Medications: Reviewed: Yes Vitals/I&O/Wt Last Vital Signs Temp 97.6 F 03/04/23 08:00 Pulse 89 03/04/23 11:48 Resp 16 03/04/23 11:48 BP 117/80 03/04/23 08:00 Pulse Ox 94 03/04/23 11:48 O2 Del Method Nasal Cannula 03/04/23 11:48 O2 Flow Rate 3 03/04/23 11:48 03/03/23 03/04/23 03/04/23 22:59 06:59 14:59 Intake Total 100 / 864.745 50 / 914.745 130.833 / 130.833 Output Total 1500 / 6800 975 / 7775 Balance -1400 / -5935.255 -925 / -6860.255 130.833 / 130.833 Weight last 48 hrs Weight 77.574 kg Weight 77.973 kg Physical Exam 2 Const: COMMON NORMALS: alert ORIENTATION/CONSCIOUSNESS: Yes oriented to person HENMT: COMMON NORMALS: normocephalic HEAD & SCALP: normocephalic Eye: COMMON NORMALS: EOMs intact bilaterally Neck/C-Spine: COMMON NORMALS: no JVD Lymph: LYMPHATIC: no lymphadenopathy noted Chest: COMMONS NORMALS: normal inspection of the chest Resp: COMMON NORMALS: normal respiratory effort, No retractions and No use of accessory muscles Cardio: COMMON NORMALS: no JVD, S1 normal heart sound present, S2 normal heart sound present, No gallops present (Cardio), No murmurs present (Cardio) and No rub (Cardio) HEART SOUNDS: S1 normal heart sound present and S2 normal heart sound present GI: COMMON NORMALS: Normal to inspection, nondistended, normoactive bowel sounds present, Soft to palpation and non-tender AUSCULTATION: Yes normoactive bowel sounds PALPATION: Yes Soft to palpation Extremity: COMMON NORMALS: normal to inspection and no pedal edema Neuro: SENSORIUM/ORIENTATION: Yes alert and Yes oriented to person Psych: COMMON NORMALS: cooperative Skin: COMMON NORMALS: no rashes or lesions noted GENERAL SKIN EXAM: no rashes or lesions noted Urinary Catheter Management: Vazquez: Cath Placed During This Visit: yes Reason for Continuing Indwelling Catheter: Acute Urinary Retention or Obstruction Urinary Catheter Date of Insertion: 02/27/23 Urinary Catheter Time of Insertion: 10:51 Data 03/04/23 05:55 03/04/23 05:55 Micro: Microbiology 02/27/23 13:24 Blood Culture - Final Blood Staphylococcus hominis A&P Assessment and plan (1) Acute hypoxic respiratory failure: Continue supplemental oxygen for SPO2 goal of 88-92, wean as tolerated (2) Hematochezia: Reportedly resolved Continue to monitor Rotate to oral PPI (3) STEMI (ST elevation myocardial infarction): Continue beta joaquim, aspirin, and statin (4) Physical deconditioning: Continue therapy (5) Hypokalemia: And hypomagnesia Replace potassium and magnesium (6) COPD with acute exacerbation: Continue prednisone Continue breathing treatments (7) Aspiration pneumonitis: Continue antibiotics (8) Pulmonary emboli: Continue apixaban (9) Transaminitis: Improving Avoid hepatotoxins (10) UTI (urinary tract infection): Ux with E coli Continue ceftriaxone, rotate to oral antibiotics at discharge (11) Sepsis: Source: UTI Improving with treatment (12) Alcoholism: Thiamine, folic acid, vitamin (13) Acute encephalopathy: Resolved Plan DVT ppx: Apixaban Code: DNR Attestations Medical Necessity Statement*: Patient requires ongoing hospitalization for IV antibiotics, serial labs, therapy, and supportive care. Coding Level of Care Code Acute Code for [facility]wd Diagnoses Acute hypoxic respiratory failure J96.01 Hematochezia K92.1 STEMI (ST elevation myocardial infarction) I21.3 Physical deconditioning R53.81 Hypokalemia E87.6 COPD with acute exacerbation J44.1 Aspiration pneumonitis J69.0 Pulmonary emboli I26.99 Transaminitis R74.01 UTI (urinary tract infection) N39.0 Sepsis A41.9 Alcoholism F10.20 Acute encephalopathy G93.40
--- NOTE | 2023-03-04 12:52 | PC.SOCIAL ---
IMM Update pg 2 of IMM updated and reviewed w/ patient. Copy provided and copy dated, and initialed and placed in chart.
[2023-03-04] MEDS: pantoprazole DR 40 mg Tablet PO (17:53)
[2023-03-05] VITALS (9 sets, daily range): BP systolic 112–131; BP diastolic 74–83; PULSE 86–105; RESP 16–19; TEMP 36.6–36.8; O2SAT 91–97
[2023-03-05] MEDS: ipratropium-albuterol 3 mL Neb INHALATION ×3 (03:51→11:21)
[2023-03-05 04:58] LABS: Basophils # 0.1 10^3/uL (0.0-0.1); Basophils % 0.4 %; Eosinophils # 0.1 10^3/uL (0.0-0.8); Eosinophils % 0.6 %; Hematocrit 39.3 % (37-53); Lymphocytes # 2.6 10^3/uL (0.8-4.8); Lymphocytes % 18.7 %; Mean Corpuscular HGB Conc 34.9 g/dL (30-55); Mean Corpuscular Hemoglobin 31.6 pg (27-33); Mean Corpuscular Volume 90.6 fl (82-101); Mean Platelet Volume 10.9 fL (7.4-10.4); Monocytes # 0.7 10^3/uL (0.2-0.9); Neutrophils # 10.01 10^3/uL (1.8-7.7); Nucleated Red Blood Cells % 0 %; Platelet Count 319 10^3/cmm (157-399); Red Blood Count 4.34 10^6/uL (3.85-5.65)
[2023-03-05 05:24] LABS: Alanine Aminotransferase 71 U/L (0-41); Albumin Level 2.7 g/dL (3.5-5.2); Alkaline Phosphatase 66 U/L (40-130); Anion Gap 14.4 (5-19); Aspartate Amino Transferase 47 U/L (0-40); Blood Urea Nitrogen 19 mg/dL (8-23); Calcium 8.6 mg/dL (8.5-10.5); Carbon Dioxide 25 mmol/L (22-29); Chloride 99 mmol/L (98-107); Glomerular Filtration Rate 112.1 mL/min (90-130); Glucose 82 mg/dL (65-115); Magnesium 1.6 mg/dL (1.7-2.3); Osmolality Calculated 281 mOsm/kg (285-295); Phosphorus 2.5 mg/dL (2.5-4.5); Potassium 3.4 mmol/L (3.5-5.1); Sodium 135 mmol/L (136-145); Total Bilirubin 0.8 mg/dL (0.15-1.2); Total Protein 5.7 g/dL (6.6-8.7)
[2023-03-05] MEDS: cefTRIAXone 1,000 MG in sodium chloride 0.9% (plus) 50 ML 100 MG IV (06:30)
[2023-03-05] MEDS: sucralfate 1 gm Tablet PO ×2 (06:30→11:22)
[2023-03-05] MEDS: budesonide 0.5 mg/2 mL Neb INHALATION (07:59)
[2023-03-05] MEDS: aspirin 81 mg EC Tablet PO (08:42)
[2023-03-05] MEDS: phosphorus 250 mg Tablet PO (08:42)
[2023-03-05] MEDS: metoprolol tartrate 25 mg Tablet PO (08:42)
[2023-03-05] MEDS: predniSONE 20 mg Tablet PO (08:42)
[2023-03-05] MEDS: thiamine 100 mg Tablet PO (08:42)
[2023-03-05] MEDS: multivitamin therapeutic Tablet 1 TAB PO (08:43)
[2023-03-05] MEDS: magnesium sulfate premix 2 GM/50 ML PIGGYBACK IV (08:43)
[2023-03-05] MEDS: pantoprazole DR 40 mg Tablet PO (08:43)
[2023-03-05] MEDS: folic acid 1 mg Tablet PO (08:43)
[2023-03-05] MEDS: apixaban 5 mg Tablet PO (08:43)
[2023-03-05] MEDS: potassium chloride ER 20 mEq Tablet 40 MEQ PO (08:43)
--- NOTE | 2023-03-05 10:36 | P.DS_ITS ---
Discharge Providers Date of Admission: 02/27/23 11:59 Date of Discharge: March 05, 2023 Attending Provider at Admission: Osmin Sierra M.D Attending Provider at Discharge: El Dennis MD Consults: Cardiology Diagnoses at Discharge Discharge Diagnosis (1) Acute hypoxic respiratory failure: Status: Acute (2) Hematochezia: Status: Acute (3) STEMI (ST elevation myocardial infarction): Status: Acute (4) Physical deconditioning: Status: Acute (5) Hypokalemia: Status: Acute (6) COPD with acute exacerbation: Status: Acute (7) Aspiration pneumonitis: Status: Acute (8) Pulmonary emboli: Status: Acute (9) Transaminitis: Status: Acute (10) UTI (urinary tract infection): Status: Acute (11) Sepsis: Status: Acute (12) Alcoholism: Status: Acute (13) Acute encephalopathy: Status: Acute Reason for Visit Reason for Visit: ams Hospital Course Hospital Course Rodrigo Shoemaker is a 68-year-old male with a past medical history significant for tobacco and alcohol use who presented with altered mental status, found to have STEMI, acute kidney injury, acute hypoxic respiratory failure, COPD with acute exacerbation, aspiration pneumonitis, rhabdomyolysis, hyponatremia, pulmonary emboli, transaminitis, E. coli urinary tract infection with sepsis, and acute encephalopathy. Cardiology consulted and followed. He underwent cardiac jagruti terization which showed totally occluded mid to distal RCA. There was unsuccessful attempts for revascularization with balloon angioplasty. He was found to have collaterals suspicious for subacute occlusion. His medications were titrated towards goal-directed medical therapy. His infection was treated with broad-spectrum antibiotics. Urine culture grew showed E. coli. Antibiotics were tailored based on culture and sensitivities. Respiratory status improved with treatment underlying pneumonitis and pulmonary emboli. His COPD was treated with steroids, breathing treatments, and antibiotics. His respiratory status significantly improved. Hospital course was further complicated by hematochezia. He was treated with PPI with resolution. He was found to have debility and physical deconditioning. He worked with therapy with improvement in strength. He is being discharged to [facility] facility for further therapy. Patient discharged in stable condition. Physical Exam Narrative: General: Patient is awake and alert. Head: Normocephalic. Atraumatic. EOM intact. Neck: No JVD. Cardiovascular: RRR. No gallops. No murmurs. No peripheral edema. Lungs: Breath sounds are slightly diminished in bilateral bases, no use of accessory muscles, no crackles or wheezes. Skin: No jaundice. No rashes. Abdomen: Normal bowel sounds, abdomen soft and nontender. Extremities: No cyanosis or clubbing. Musculoskeletal: No erythematous joints. Neurological: Moves all 4 extremities. No myoclonus. Urinary Catheter Management: Vazquez: Cath Placed During This Visit: yes Reason for Continuing Indwelling Catheter: Acute Urinary Retention or Obstruction Urinary Catheter Date of Insertion: 02/27/23 Urinary Catheter Time of Insertion: 10:51 Discharge Data Studies Completed and Pending Completed Studies During Hospitalization Category Date Time Status CT angio chest PE protcl [id number] Stat Cat Scan 02/27/23 09:[address] head wo con* [id number] Stat Cat Scan 02/27/23 09:15 Completed RETAIL ACCOUNT SPECIALIST request for service Stat Exams 02/27/23 09:44 Completed CXRP [XR chest 1V portable [id number]] Routine Exams 03/02/23 05:51 Completed XR chest 1V portable [id number] Stat Exams 02/27/23 09:10 [place] [id number] Urgent Ultrasound 02/28/23 12:16 Completed CV. echo complete* [id number] Routine Ultrasound 02/27/23 11:56 Completed Pending at discharge Category Date Time Status Blood Culture Stat Lab 02/28/23 17:23 Results COVID [SARS Covid-2 Antigen] Routine Lab 03/05/23 07:37 Uncollected OVA and Parasites, Conc and PE Routine Lab 03/04/23 12:19 Received Salmonella / Shigella / Campy Routine Lab 03/04/23 12:19 Received Radiology Impressions Venous Duplex 02/28/23 12:16 IMPRESSION: No evidence of deep vein thrombosis. Chest X-Ray 03/02/23 05:51 IMPRESSION: Bilateral lung findings suggestive of pulmonary edema. Aspiration or pulmonary hemorrhage could have similar appearance. Laboratory Results WBC 14.10 10^3/uL (3.29-11.43) H 03/05/23 04:14 RBC 4.34 10^6/uL (3.85-5.65) 03/05/23 04:14 Hgb 13.70 g/dL (11.27-16.99) 03/05/23 04:14 Hct 39.3 % (37-53) 03/05/23 04:14 MCV 90.6 fl (82-101) 03/05/23 04:14 MCH 31.6 pg (27-33) 03/05/23 04:14 MCHC 34.9 g/dL (30-55) 03/05/23 04:14 RDW 14.0 % (12.1-15.1) 03/05/23 04:14 Plt Count 319 10^3/cmm (157-399) D 03/05/23 04:14 MPV 10.9 fL (7.4-10.4) H 03/05/23 04:14 Neut % (Auto) 71.0 % 03/05/23 04:14 Lymph % (Auto) 18.7 % 03/05/23 04:14 [place] % (Auto) 5.0 % 03/05/23 04:14 Eos % (Auto) 0.6 % 03/05/23 04:14 Baso % (Auto) 0.4 % 03/05/23 04:14 Neut # (Auto) 10.01 10^3/uL (1.8-7.7) H 03/05/23 04:14 Lymph # (Auto) 2.6 10^3/uL (0.8-4.8) 03/05/23 04:14 [place] # (Auto) 0.7 10^3/uL (0.2-0.9) 03/05/23 04:14 Eos # (Auto) 0.1 10^3/uL (0.0-0.8) 03/05/23 04:14 Baso # (Auto) 0.1 10^3/uL (0.0-0.1) 03/05/23 04:14 Nucleated RBC % (auto) 0 % 03/05/23 04:14 Nucleated RBCs # 0.0 /100WBC 03/05/23 04:14 PT 17.90 SECONDS (12.1-14.9) H 02/27/23 10:40 INR 1.43 (0.8-1.2) H 02/27/23 10:40 APTT 28.2 SECONDS (23.9-36.7) D 03/03/23 16:00 Specimen Type Arterial 02/28/23 12:33 Sample Site Radial, left 02/28/23 12:33 ABG pH 7.44 (7.35-7.45) 02/28/23 12:33 ABG pCO2 25.5 mmHg (35-45) L 02/28/23 12:33 ABG pO2 57.7 mmHg (80.0-100.0) L 02/28/23 12:33 ABG HCO3 17.4 mmol/L (22-26) L 02/28/23 12:33 ABG O2 Saturation 90.4 02/28/23 12:33 ABG Base Excess -5.0 mmol/L (-2.0-2.0) L 02/28/23 12:33 Myles Test Pos 02/28/23 12:33 A-a O2 Gradient 7.8 mmHg (5-10) 02/28/23 12:33 Hematocrit 44.6 % (42-52) 02/28/23 12:33 Hgb O2 Saturation 88.9 % (95-100) L 02/28/23 12:33 Carboxyhemoglobin 1.1 %THgb (0.4-20.1) 02/28/23 12:33 Methemoglobin 0.5 % (0.4-1.5) 02/28/23 12:33 Total Hemoglobin 14.6 g/dL (14-18) 02/28/23 12:33 Sodium 129.0 mmol/L (131-143) L 02/28/23 12:33 Potassium 3.1 mmol/L (3.5-5.0) L 02/28/23 12:33 Glucose 114.0 mg/dL (70-115) 02/28/23 12:33 Ionized Calcium 1.1 mmol/L (1.1-1.4) 02/28/23 12:33 O2 Delivery Device Nc 02/28/23 12:33 O2 Liters/Min 10.0 % 02/28/23 12:33 Consumer Product Advisor ID [place] 02/28/23 12:33 Sodium 135 mmol/L (136-145) L 03/05/23 04:14 Potassium 3.4 mmol/L (3.5-5.1) L 03/05/23 04:14 Chloride 99 mmol/L (98-107) 03/05/23 04:14 Carbon Dioxide 25 mmol/L (22-29) 03/05/23 04:14 Anion Gap 14.4 (5-19) 03/05/23 04:14 BUN 19 mg/dL (8-23) 03/05/23 04:14 Creatinine 0.7 mg/dL (0.7-1.2) 03/05/23 04:14 GFR Calculation 112.1 mL/min (90-130) 03/05/23 04:14 Glucose 82 mg/dL (65-115) 03/05/23 04:14 Estimat Average Glucose 100 03/01/23 01:10 PLACEMENT SPECIALIST Hemoglobin A1c 5.1 % (4.0-6.0) 03/01/23 01:10 PLACEMENT SPECIALIST Calculated Osmolality 281 mOsm/kg (285-295) L 03/05/23 04:14 Lactic Acid 4.1 mmol/L (0.5-2.2) H* 02/27/23 10:40 Lactic Acid (Sepsis) 1.3 mmol/L (0.5-2.2) 02/27/23 15:08 Calcium 8.6 mg/dL (8.5-10.5) 03/05/23 04:14 Phosphorus 2.5 mg/dL (2.5-4.5) 03/05/23 04:14 Magnesium 1.6 mg/dL (1.7-2.3) L 03/05/23 04:14 Iron 18 ug/dL (59-158) L 02/28/23 03:56 TIBC 166 mcg/dl 02/28/23 03:56 % Saturation 10.8 % (20-50) L 02/28/23 03:56 Unsat Iron Binding 148 ug/dL (112-347) 02/28/23 03:56 Total Bilirubin 0.8 mg/dL (0.15-1.2) 03/05/23 04:14 AST 47 U/L (0-40) H 03/05/23 04:14 ALT 71 U/L (0-41) H 03/05/23 04:14 Alkaline Phosphatase 66 U/L (40-130) 03/05/23 04:14 Ammonia 32 umol/L (16-60) 02/27/23 10:40 Creatine Kinase 1128 U/L (39-308) H* 03/02/23 04:05 Troponin T Baseline 9327 ng/L (0-15) H* 02/27/23 10:40 Troponin T 120 Minute 8734 ng/L (0-15) H 02/27/23 13:24 Delta Troponin T -593 ABS# (0-10) L 02/27/23 13:24 Troponin T Hi Sens 6Hr 8014 ng/L (0-15) H 02/27/23 16:45 Troponin T Hi Sens 6Hr Delta -1313 ng/L (0-12) L 02/27/23 16:45 NT-Pro-B Natriuret Pep 14085 pg/mL (0-125) H 02/27/23 10:40 Total Protein 5.7 g/dL (6.6-8.7) L 03/05/23 04:14 Albumin 2.7 g/dL (3.5-5.2) L 03/05/23 04:14 Globulin 3.0 g/dL (1.3-4.6) 03/05/23 04:14 Triglycerides 104 mg/dL (0-150) 03/01/23 01:10 PLACEMENT SPECIALIST Cholesterol 109 mg/dL (0-200) 03/01/23 01:10 PLACEMENT SPECIALIST LDL Cholesterol, Calc 55 mg/dL (50-129) 03/01/23 01:10 PLACEMENT SPECIALIST Total VLDL Cholesterol 21 mg/dL (0-30) 03/01/23 01:10 PLACEMENT SPECIALIST HDL Cholesterol 33 mg/dL (60-100) L 03/01/23 01:10 PLACEMENT SPECIALIST Cholesterol/HDL Ratio 3.30 mg/dL (1.0-5.00) 03/01/23 01:10 PLACEMENT SPECIALIST Lipase 21 U/L (13-60) 02/27/23 10:40 Vitamin B12 1106 pg/mL (232-1245) 02/28/23 03:56 Folate 3.0 ng/mL (4.5-32.2) L 03/01/23 01:10 PLACEMENT SPECIALIST TSH 1.11 uIU/mL (0.27-4.20) 02/27/23 10:40 Urine Color Straw (Yellow) 02/28/23 14:30 Urine Appearance Sl hazy (CLEAR) A 02/28/23 14:30 Urine pH 5 (5-7) 02/28/23 14:30 Ur Specific [place] 1.010 (1.005-1.030) 02/28/23 14:30 Urine Protein Trace (Negative) 02/28/23 14:30 Urine Glucose (UA) Norm (Normal) 02/28/23 14:30 Urine Ketones 1+ (Negative) H 02/28/23 14:30 Urine Blood 3+ (Negative) H 02/28/23 14:30 Urine Nitrate Negative (Negative) 02/28/23 14:30 Urine Bilirubin Neg (Negative) 02/28/23 14:30 Urine Urobilinogen Norm mg/dL (Negative) 02/28/23 14:30 Ur Leukocyte Esterase Trace (Negative) H 02/28/23 14:30 Urine RBC 0-4 /hpf (0-2) H 02/28/23 14:30 Urine WBC 0-4 /hpf (0-5) H 02/28/23 14:30 Ur Eosinophil Smear 0 (0-0) 02/28/23 14:30 Ur Squamous Epith Cells None /hpf (0-5) 02/28/23 14:30 Uric Acid Crystals 0-4 /hpf 02/28/23 14:30 Amorphous Sediment 1+ /hpf 02/28/23 14:30 Urine Bacteria 1+ /hpf (NONE) H 02/28/23 14:30 Fine Granular Casts 0-4 /lpf H 02/27/23 10:48 Coarse Granular Casts 5-10 /lpf H 02/28/23 14:30 Other Casts Waxy /lpf 02/27/23 10:48 Urine Mucus Trace /hpf 02/27/23 10:48 Urine Eosinophils No eosinophils seen 02/28/23 14:30 Urine Osmolality 312 mOsm/kg (50-1200) 02/27/23 13:15 Ur Random Sodium 18 mmol/L 02/28/23 14:30 Ur Random Potassium 44 mmol/L 02/28/23 14:30 Ur Random Chloride 19 mmol/L 02/28/23 14:30 Urine Creatinine 58 mg/dL (39-259) 02/28/23 14:30 Stl C. difficile Result See note 03/02/23 00:30 Vancomycin Trough 8.6 ug/mL (10-15) L 03/03/23 16:00 Urine Opiates Screen Negative ng/mL (Negative) 02/27/23 13:15 Ur Barbiturates Screen Negative ng/mL (Negative) 02/27/23 13:15 Ur Phencyclidine Scrn Negative ng/mL (Negative) 02/27/23 13:15 Ur Amphetamines Screen Negative ng/mL (Negative) 02/27/23 13:15 U Benzodiazepines Scrn Negative ng/mL (Negative) 02/27/23 13:15 Urine Cocaine Screen Negative ng/mL (Negative) 02/27/23 13:15 U Marijuana (THC) Screen Negative ng/mL (Negative) 02/27/23 13:15 Ethyl Alcohol < 10 mg/dL (0-10) 02/27/23 10:40 Serum Ketones Negative (Negative) 02/27/23 10:40 Coronavirus 229E (PCR) Not detected (NOT DETECT) 02/27/23 13:15 Hepatitis A IgM Ab Non-reactive (Nonreactive) 02/27/23 10:40 Hep Bs Antigen Non-reactive (Nonreactive) 02/27/23 10:40 Hep B Core IgM Ab Non-reactive (Nonreactive) 02/27/23 10:40 Hepatitis C Antibody Non-reactive (Nonreactive) 02/27/23 10:40 SARS-CoV-2 (PCR) Not detected (NOT DETECT) 02/27/23 13:15 MRSA (PCR) Not detected (NOT DETECTED) 02/27/23 13:15 Vitals Last Vital Signs Temp 97.9 F 03/05/23 04:00 Pulse 100 03/05/23 08:10 Resp 16 03/05/23 08:10 BP 120/81 03/05/23 04:00 Pulse Ox 93 03/05/23 08:10 O2 Del Method Room Air 03/05/23 08:10 O2 Flow Rate 3 03/05/23 07:59 Discharge Plan Discharge Patient Disposition: Home Condition: Stable Prescriptions: New thiamine mononitrate (vit B1) [Vitamin B-1 (mononitrate)] 100 mg Tablet 100 mg PO DAILY Qty: 30 0RF metoprolol tartrate 25 mg Tablet 25 mg PO BID@0900,2100 Qty: 60 0RF Eliquis 5 mg Tablet 5 mg PO BID@0900,2100 Qty: 60 0RF prednisone 20 mg Tablet 20 mg PO DAILY 3 Days Qty: 3 0RF acetaminophen 325 mg Tablet 650 mg PO Q6H PRN (Reason: Mild Pain) Qty: 30 0RF aspirin 81 mg Tablet,Delayed Release (Dr/Ec) 81 mg PO DAILY Qty: 30 0RF folic acid 1 mg Tablet 1 mg PO DAILY Qty: 30 0RF budesonide 0.5 mg/2 mL Suspension For Nebulization 0.5 mg inhalation BID.RESPIRATORY Qty: 10 0RF ipratropium-albuterol 0.5 mg-3 mg(2.5 mg base)/3 mL Solution For Nebulization 3 ml inhalation Q4H Qty: 10 0RF multivitamin with folic acid [Thera] 400 mcg Tablet 1 tab PO DAILY Qty: 30 0RF zinc oxide 20 % Ointment 1 applic topical PRN PRN (Reason: Skin Protectant over buttocks ) Qty: 10 0RF sucralfate 1 gram Tablet 1 g PO AC&BEDTIME Qty: 60 0RF pantoprazole 40 mg Tablet,Delayed Release (Dr/Ec) 40 mg PO BID Qty: 60 0RF loperamide 2 mg Capsule 4 mg PO QID PRN (Reason: Diarrhea) Qty: 30 0RF cefdinir 300 mg capsule 300 mg PO BID 5 Days Qty: 10 0RF No Action No Known Home Medications Discharge Orders: Discharge Order (Routine); Ordered 03/05/23 Ordered By: El Dennis Referrals: [facility] [Outside] Elva Chester FNP [Nurse Practitioner] - 1 month (Follow up for STEMI, CAD.) Discharge Diet: Advance as tolerated, Usual diet, Low Salt and Low Cholesterol Discharge Activity: Resume usual activity, Increase activity as tolerated and As per PT/OT instructions Patient Instructions: Coronary Angioplasty (DC), Opioid Safety Activity Restrictions/Additional Instructions: 1. Increase activity as tolerated. 2. Take medications as prescribed. 3. Follow up with outpatient providers. Discharge Attestations Time Spent in Discharge Care*: greater than 30 min Quality Metrics Clinical Quality Measures [ No reported AMI, CVA or VTE this stay] Coding Level of Care Code Acute Code for [facility] Fwd Diagnoses Acute hypoxic respiratory failure J96.01 Hematochezia K92.1 STEMI (ST elevation myocardial infarction) I21.3 Physical deconditioning R53.81 Hypokalemia E87.6 COPD with acute exacerbation J44.1 Aspiration pneumonitis J69.0 Pulmonary emboli I26.99 Transaminitis R74.01 UTI (urinary tract infection) N39.0 Sepsis A41.9 Alcoholism F10.20 Acute encephalopathy G93.40
[2023-03-05 11:59] LABS: SARS Covid-2 Antigen negative (Negative)
--- NOTE | 2023-03-05 12:37 | PC.NURSE ---
Nurse called report to CRYSTAL Matos, at [facility]. Updated on patient's current condition, admitting diagnoses, current vitals, removal of berg, open spot on bottom, diet, and activity level. All questions answered/addressed.
== END 2023-03-05 14:24 | disposition skilled nursing facility (03) | DRG 853 ==
LOC: ER 10:13 → CCL 10:41 → ICU 12:02 → MEDSURG 03-04 02:52
PROVIDERS: Internal Medicine; Student in an Organized Health Care Education/Training Program; Admitting Provider Internal Medicine; Emergency Provider Family Medicine; Visit Provider Internal Medicine
PROC: 02703ZZ Dilation of Coronary Artery, One Artery, Percutaneous Approach (ICD-10-PCS; principal; 2023-02-27 11:00)
PROC: 02703ZZ Dilation of Coronary Artery, One Artery, Percutaneous Approach (ICD-10-PCS; 2023-02-27 11:00)
DX: A41.1 Sepsis due to other specified staphylococcus (principal); G93.41 Metabolic encephalopathy; I21.3 ST elevation (STEMI) myocardial infarction of unspecified site; J96.01 Acute respiratory failure with hypoxia; J69.0 Pneumonitis due to inhalation of food and vomit; I26.94 Multiple subsegmental thrombotic pulmonary emboli without acute cor pulmonale; K92.1 Melena; J44.1 Chronic obstructive pulmonary disease with (acute) exacerbation; N39.0 Urinary tract infection, site not specified; N17.9 Acute kidney failure, unspecified; E87.20 Acidosis, unspecified; E87.1 Hypo-osmolality and hyponatremia; M62.82 Rhabdomyolysis; E87.6 Hypokalemia; B96.20 Unspecified Escherichia coli [E. coli] as the cause of diseases classified elsewhere; F17.210 Nicotine dependence, cigarettes, uncomplicated; E83.42 Hypomagnesemia; I25.10 Atherosclerotic heart disease of native coronary artery without angina pectoris; F10.10 Alcohol abuse, uncomplicated; Z66 Do not resuscitate
CPT/HCPCS: 36415; 36600; 51702; 70450; 71045; 71275; 80048; 80051; 80053; 80061; 80069; 80074; 80202; 80306; 80307; 81001; 82009; 82140; 82274; 82330; 82436; 82550; 82570; 82607; 82746; 82805; 83036; 83540; 83550; 83605; 83690; 83735; 83880; 83935; 84100; 84133; 84300; 84443; 84484; 85014; 85018; 85025; 85347; 85610; 85730; 85999; 86403; 87040; 87045; 87077; 87086; 87150; 87177; 87186; 87205; 87209; 87324; 87426; 87427; 87449; 87635; 87641; 92920; 93005; 93306; 93458; 93970; 94640; 96365; 96366; 96367; 96372; 96375; 96376; 97110; 97116; 97161; 97167; 97530; 97535; 99152; 99153; 99285; C1725; C1769; C1887; C1894; C9113; J0696; J1644; J1940; J2250; J2543; J2930; J3010; J3370; J3411; J3475; J3480; J3490; J7030; J7060; J7512; J7626; Q9967